=== PATIENT | female | born 1970 | race Caucasian/White ===

== ENCOUNTER 2017-06-29 05:52 | Inpatient (IN) | payer BC ==
[~2017-06-29] VITALS: Ht 154.9 cm; Wt 63.4 kg
[~2017-06-29 05:52] MED LIST: KLONOPIN0.5 MG; METOPROLOL TART50 MG PO
[2017-06-29 06:22] LABS: BASOPHILS 0.1 % (0-2); EOSINOPHILS 4.2 % (0-7); HEMATOCRIT 37.5 % (36.0-48.0); HEMOGLOBIN 12.3 g/dL (12-16); IMMATURE GRANULOCYTES 0.6 % (0-5); LYMPHOCYTES 8.6 % (15-50); MCH 38.4 pg (26.0-34.0); MCHC 32.8 g/dL (31.0-37.0); MCV 117.2 fL (80.0-100.0); MEAN PLATELET VOLUME 9.9 fL (7.4-10.4); MONOCYTES 7.3 % (2-11); NEUTROPHILS 79.2 % (40-80); RDW 13.7 % (11.5-14.5); WBC 15.2 10x3/uL (4.8-10.8)
[2017-06-29 06:34] LABS: PLATELET COUNT 219 10x3/uL (130-400)
[2017-06-29 07:07] LABS: ALBUMIN 3.7 g/dL (3.4-5.0); ALKALINE PHOSPHATASE 166 U/L (46-116); ALT (SGPT) 54 U/L (10-68); BILIRUBIN - TOTAL 0.89 mg/dL (0.2-1.3); CALC OSMOLALITY 281 mosm/kg (275-300); CALCIUM 8.6 mg/dL (8.5-10.1); CARBON DIOXIDE 25.4 mmol/L (21.0-32.0); CHLORIDE - SERUM 101 mmol/L (98-107); CREATININE - SERUM 0.8 mg/dL (0.6-1.3); GLUCOSE 119 mg/dL (74-106); POTASSIUM - SERUM 3.6 mmol/L (3.5-5.1); PROTEIN - SERUM 7.6 g/dL (6.4-8.2); SODIUM 139 mmol/L (136-145); UREA NITROGEN 22 mg/dL (7-18); eGFR NON AFRICAN AMERICAN 82 mL/min (90-120)
[2017-06-29 07:10] LABS: LIPASE 3830 U/L (73-393)
[2017-06-29 07:11] LABS: AMYLASE - SERUM 370 U/L (25-115)
[2017-06-29 07:52] LABS: UDS - AMPHET NEGATIVE QUAL (NEGATIVE); UDS - BARB NEGATIVE QUAL (NEGATIVE); UDS - BENZO NEGATIVE QUAL (NEGATIVE); UDS - COCAINE NEGATIVE QUAL (NEGATIVE); UDS - OPIATE POSITIVE QUAL (NEGATIVE); UDS - PCP NEGATIVE QUAL (NEGATIVE); UDS - THC NEGATIVE QUAL (NEGATIVE)
[2017-06-29 08:00] LABS: HCG URINE NEGATIVE (NEGATIVE)
[2017-06-29 08:03] LABS: APPEARANCE CLEAR (CLEAR); BILIRUBIN NEGATIVE (NEGATIVE); COLOR DK YELLOW (YELLOW); GLUCOSE NEGATIVE (NEGATIVE); KETONE SMALL mg/dL (NEGATIVE); NITRITE NEGATIVE (NEGATIVE); PROTEIN NEGATIVE (NEGATIVE)
--- NOTE | 2017-06-29 11:04 | NUR ---
TO ROOM VIA WHEELCHAIR. SALINE LOCK TO RIGHT AC. WANTING MORE PAIN MEDS AT THIS TIME. WAS GIVEN MS AT 1015 IN THE ER.
[2017-06-29 11:11] VITALS: BP 165/98; BMI 22.7
--- NOTE | 2017-06-29 11:44 | NUR ---
INSPECTOR OUTSIDE STEAM DISTRIBUTION WITH MS SET UP AND EXPLAINED TO PATIENT AND MOTHER. CALLED TO ROOM AGAIN AND EXPLAINED TO USEAGE AGAIN.
[2017-06-29 12:45] LABS: CHOL - HDL RATIO 5.9 ratio (2.3-4.1); LDL-HDL RATIO 3.2 ratio (1.5-3.5)
--- NOTE | 2017-06-29 13:04 | NUR ---
PATIENT UP TO TAKING A SHOWER. RIGHT HAND COVERED WITH GLOVE.
--- NOTE | 2017-06-29 14:21 | NUR ---
CALLED TO ROOM TO ASSIST TO RESTROOM. PATIENT STATES THAT HER PAIN MEDICINE IS "NOT WORKING". I INFORMED PATIENT THAT TWICE I HAVE LOOKED IN ON HER AND SHE HAS BEEN SNORING LIGHTLY. WILL CONTINUE TO MONITOR. STILL NPO
[2017-06-29 15:53] VITALS: BP 114/98
--- NOTE | 2017-06-29 19:45 | NUR ---
ASSESSMENT COMPLETE, A&O. RESPERATIONS EVEN ON RA. IV TO RIGHT AC WITH NS INFUSING AT 125 CC/HR AND MORPHINE ELECTRONICS SPECIALIST IN USE FOR PAIN CONTROL. PT DENIES NEEDS AT THIS TIME, BED LOW, CL IN REACH.
[2017-06-29 20:30] VITALS: BP 148/83
--- NOTE | 2017-06-30 00:13 | NUR ---
CALLED TO PTS ROOM TO EMPTY HAT IN COMMODE, EMPTIED 200 CC, CONCENTRATED URINE NO OTHER NEEDS AT THIS TIME.
--- NOTE | 2017-06-30 00:28 | NUR ---
IN BE RESTING WITH EYES CLOSED, RESPERATIONS EVEN, NO S/S DISTRESS NOTED.
[2017-06-30 01:44] VITALS: BP 131/83
[2017-06-30 04:40] VITALS: BP 165/70
[2017-06-30 05:59] LABS: BASOPHILS 0.1 % (0-2); EOSINOPHILS 2.9 % (0-7); HEMATOCRIT 35.1 % (36.0-48.0); HEMOGLOBIN 11.3 g/dL (12-16); IMMATURE GRANULOCYTES 0.4 % (0-5); LYMPHOCYTES 4.3 % (15-50); MCHC 32.2 g/dL (31.0-37.0); MCV 118.2 fL (80.0-100.0); MEAN PLATELET VOLUME 10.1 fL (7.4-10.4); MONOCYTES 5.9 % (2-11); NEUTROPHILS 86.4 % (40-80); RBC 2.97 10x6/uL (4.00-5.40)
[2017-06-30 06:13] LABS: APTT 21.6 SECONDS (22.8-39.4); INR 1.06 (0.85-1.17); PLATELET COUNT 155 10x3/uL (130-400); PROTIME 13.7 SECONDS (11.6-15.0)
[2017-06-30 06:25] LABS: ALKALINE PHOSPHATASE 129 U/L (46-116); BILIRUBIN - DIRECT 0.73 mg/dL (0.00-0.30); BILIRUBIN - INDIRECT 1.39 mg/dL (0.00-1.00); BILIRUBIN - TOTAL 2.12 mg/dL (0.2-1.3); CALCIUM 8.1 mg/dL (8.5-10.1); CHLORIDE - SERUM 102 mmol/L (98-107); CREATININE - SERUM 0.6 mg/dL (0.6-1.3); GLUCOSE 89 mg/dL (74-106); MAGNESIUM - SERUM 1.8 mg/dL (1.8-2.4); PROTEIN - SERUM 6.4 g/dL (6.4-8.2); SODIUM 137 mmol/L (136-145); eGFR NON AFRICAN AMERICAN > 90 mL/min (90-120)
[2017-06-30 06:32] LABS: AMYLASE - SERUM 623 U/L (25-115); LIPASE 2968 U/L (73-393)
[2017-06-30 06:33] LABS: ALT (SGPT) 35 U/L (10-68); CALC OSMOLALITY 272 mosm/kg (275-300); POTASSIUM - SERUM 4.7 mmol/L (3.5-5.1); UREA NITROGEN 12 mg/dL (7-18)
[2017-06-30 07:13] VITALS: BP 142/85
[2017-06-30 12:57] VITALS: BP 102/59
[2017-06-30 13:17] VITALS: Ht 154.9 cm; Wt 63.4 kg
[2017-06-30 16:00] VITALS: BP 124/87
--- NOTE | 2017-06-30 19:12 | NUR ---
PT IN BED WITH EYES OPEN WATCHING TV. NO S/S DISTRESS. NO COMPLAINTS OR CONCERNS NOTED AT THIS TIME.
[2017-06-30 20:00] VITALS: BP 149/65
[2017-07-01] VITALS: BP 126/77
--- NOTE | 2017-07-01 00:30 | NUR ---
PT IN BED WITH EYES CLOSED AND CHEST RISING. EASILY AROUSED TO VERBAL STIMULI. IV LEAKING AND MOVED TO LEFT FOREARM WITH 22GA AND 4 ATTEMPTS BY 3 NURSES. NO CONCERNS NOTED AT THIS TIME. CALL LIGHT IN REACH. WILL CONTINUE TO OBSERVE.
[2017-07-01 04:00] VITALS: BP 120/69
[2017-07-01 05:37] LABS: BASOPHILS 0.1 % (0-2); EOSINOPHILS 2.8 % (0-7); HEMATOCRIT 33.5 % (36.0-48.0); HEMOGLOBIN 10.8 g/dL (12-16); IMMATURE GRANULOCYTES 0.4 % (0-5); LYMPHOCYTES 4.1 % (15-50); MCH 38.6 pg (26.0-34.0); MCHC 32.2 g/dL (31.0-37.0); MCV 119.6 fL (80.0-100.0); MEAN PLATELET VOLUME 10.2 fL (7.4-10.4); MONOCYTES 4.9 % (2-11); NEUTROPHILS 87.7 % (40-80); PLATELET COUNT 173 10x3/uL (130-400); RDW 13.8 % (11.5-14.5)
[2017-07-01 05:38] LABS: WBC 18.2 10x3/uL (4.8-10.8)
[2017-07-01 06:06] LABS: ALKALINE PHOSPHATASE 143 U/L (46-116); ALT (SGPT) 31 U/L (10-68); BILIRUBIN - INDIRECT 1.86 mg/dL (0.00-1.00); BILIRUBIN - TOTAL 5.16 mg/dL (0.2-1.3); CALC OSMOLALITY 276 mosm/kg (275-300); CALCIUM 8.4 mg/dL (8.5-10.1); CHLORIDE - SERUM 102 mmol/L (98-107); GLUCOSE 74 mg/dL (74-106); LIPASE 765 U/L (73-393); MAGNESIUM - SERUM 1.9 mg/dL (1.8-2.4); PROTEIN - SERUM 6.9 g/dL (6.4-8.2); SODIUM 140 mmol/L (136-145); UREA NITROGEN 9 mg/dL (7-18)
[2017-07-01 06:09] LABS: AMYLASE - SERUM 276 U/L (25-115); CREATININE - SERUM 0.8 mg/dL (0.6-1.3); POTASSIUM - SERUM 3.7 mmol/L (3.5-5.1); eGFR NON AFRICAN AMERICAN 82 mL/min (90-120)
[2017-07-01 08:35] VITALS: BP 143/87
[2017-07-01 12:40] VITALS: BP 122/78
[2017-07-01 16:44] VITALS: BP 167/99
[2017-07-01 16:52] LABS: LIPASE 553 U/L (73-393)
[2017-07-01 17:07] LABS: AMYLASE - SERUM 154 U/L (25-115)
[2017-07-01 19:00] VITALS: BP 143/75
--- NOTE | 2017-07-02 02:31 | NUR ---
CALL LIGHT IN REACH. WILL CONTINUE WITH PLAN OF CARE.
[2017-07-02 05:37] LABS: BASOPHILS 0.2 % (0-2); EOSINOPHILS 3.6 % (0-7); HEMATOCRIT 30.2 % (36.0-48.0); HEMOGLOBIN 9.6 g/dL (12-16); IMMATURE GRANULOCYTES 0.3 % (0-5); LYMPHOCYTES 5.1 % (15-50); MCH 37.9 pg (26.0-34.0); MCHC 31.8 g/dL (31.0-37.0); MCV 119.4 fL (80.0-100.0); MEAN PLATELET VOLUME 10.1 fL (7.4-10.4); MONOCYTES 7.8 % (2-11); PLATELET COUNT 183 10x3/uL (130-400); RBC 2.53 10x6/uL (4.00-5.40); RDW 13.5 % (11.5-14.5)
[2017-07-02 05:41] LABS: WBC 13.2 10x3/uL (4.8-10.8)
[2017-07-02 05:56] LABS: ALBUMIN 2.7 g/dL (3.4-5.0); ALKALINE PHOSPHATASE 125 U/L (46-116); ALT (SGPT) 24 U/L (10-68); CALC OSMOLALITY 274 mosm/kg (275-300); CALCIUM 8.5 mg/dL (8.5-10.1); CHLORIDE - SERUM 106 mmol/L (98-107); CREATININE - SERUM 0.7 mg/dL (0.6-1.3); LIPASE 386 U/L (73-393); MAGNESIUM - SERUM 1.7 mg/dL (1.8-2.4); POTASSIUM - SERUM 4.2 mmol/L (3.5-5.1); PROTEIN - SERUM 6.3 g/dL (6.4-8.2); SODIUM 140 mmol/L (136-145); UREA NITROGEN 8 mg/dL (7-18); eGFR NON AFRICAN AMERICAN > 90 mL/min (90-120)
[2017-07-02 06:04] LABS: AMYLASE - SERUM 88 U/L (25-115); GLUCOSE 63 mg/dL (74-106)
--- NOTE | 2017-07-02 07:15 | NUR ---
RECIEVED REPORT ON PATIENT, PATIENT IS ALERT AND ORIENTED AT THIS TIME. PATIENT IS RESTING IN BED, MOTHER IS AT THE BEDSIDE AT THIS TIME. PATIENT HAS A L FA IV THAT IS INFUSING WITH NS AT 125ML/HR AND A MORPHINE ACCOUNTS PAYABLE ACCOUNTANT WITH SETTINGS 2MG/10MIN. PATIENT PAIN IS IN HER ABD, SHARP PAIN 5/10. WILL CONT TO MONITOR PATIENT. PATIENT DENIES ANY NEEDS. CPOC
--- NOTE | 2017-07-02 09:00 | NUR ---
PO MEDS HELD DUE TO PATIENT BEING NPO, AND PATIENT STATES TO HOLD FOR NOW. CPOC
[2017-07-02 10:17] LABS: HEPATITIS C ANTIBODY <0.1 (0.0-0.9)
[2017-07-02 10:22] VITALS: BP 161/88
--- NOTE | 2017-07-02 11:00 | NUR ---
PATIENT SIGNED CONSENTS. DENIES ANY NEEDS. CPOC
--- NOTE | 2017-07-02 12:00 | NUR ---
PATIENT HAS HAD SHOWER, AND PREPPED FOR SURGERY. DENIES ANY NEEDS. CPOC
[2017-07-02 12:08] VITALS: BP 152/85
--- NOTE | 2017-07-02 14:33 | NUR ---
PATIENT PREOP AND GONE FOR SURGERY. CPOC
[2017-07-02 15:26] VITALS: BP 161/86
--- NOTE | 2017-07-02 16:16 | NUR ---
1545 PATIENT NOTED TO HAVING NUMEROUS BRUISING ON ARMS, AND WHEN PREPPING NOTED SEVERAL BRUISES ON ABDOMEN, ALISTAIR.
--- NOTE | 2017-07-02 16:26 | NUR ---
PATIENT STILL IN SURGERY. CPOC
--- NOTE | 2017-07-02 17:15 | NUR ---
PATIENT EATING DINNER, DENIES ANY NEEDS AT THIS TIME. PRECISION INSTRUMENT MAKER
--- NOTE | 2017-07-02 17:30 | NUR ---
RECIEVED REPORT FROM YVON IN RECOVERY. WAITING FOR ARRIVAL.
[2017-07-02 17:38] VITALS: BP 154/83
--- NOTE | 2017-07-02 17:44 | NUR ---
PATIENT BACK TO ROOM, VS STABLE. PATIENT PAIN IS 8/10. MORPHINE PAPER NOVELTY MAKER HOOKED BACK UP AND INFUSING NEEDED. WLL CONT TO MONITOR. CPOC
--- NOTE | 2017-07-02 19:59 | NUR ---
PT RESTING IN BED.FAMILY AT BEDSIDE. PT ASKS FOR SCDS TO BE PUT ON BILATERAL LOWER EXTREMITIES. PT DENIES ANY NEEDS. NO S/S OF DISTRESS. WILL CPOC
[2017-07-02 20:00] VITALS: BP 144/73
--- NOTE | 2017-07-02 21:20 | NUR ---
PT C/O ABD INCISION BLEEDING. PT HAS A BANDAID ON AREA. AREA BLEEDING. NO STERI-STRIPS SEEN. ATTEMPTED TO APPLY STERI-STRIPS. AND PUT A PRESSURE DRSG. TO AREA. PT DENIES ANY OTHER NEEDS. NO S/S OF DISTRESS. WILL CPOC
--- NOTE | 2017-07-02 22:36 | OP ---
PATIENT NAME: HERIBERTO HUITRON MEDICAL RECORD: [id number] :72 LOCATION:D. D.2133 ADMISSION DATE:06/29/17 SURGEON: ELIZABETH MORRIS MD DATE OF OPERATION: 07/02/2017 DATE OF OPERATION: 07/02/2017 SURGEON: Elizabeth Morris MD PREOPERATIVE DIAGNOSES: 1. Pancreatitis. 2. Jaundice. 3. Hypertension. POSTOPERATIVE DIAGNOSES: 1. Pancreatitis. 2. Jaundice. 3. Hypertension. 4. Cirrhosis. PROCEDURE PERFORMED: 1. Laparoscopic cholecystectomy. 2. Intraoperative cholangiogram with immediate interpretation of fluoroscopy. Case was clean contaminated. SPECIMENS: Gallbladder. ESTIMATED BLOOD LOSS: 70 cc. ANESTHESIA: General. OPERATIVE COURSE: After consent was obtained, the patient was taken to the operating room and placed in the supine position on the operating table. Next, general anesthesia was given via endotracheal intubation. Thereafter, a timeout was taken to confirm the correct patient and procedure. The abdomen was prepped and draped in typical sterile fashion. Local anesthetic was injected just above the umbilicus. A stab incision was made with a 15-blade scalpel. Using a 5-mm bladeless optical trocar, the abdomen was entered under direct laparoscopic vision. Adequate pneumoperitoneum was achieved. The abdominal cavity was inspected. No evidence of bowel injury. No evidence of bleeding. At this time, the patient was placed in the steep reverse Trendelenburg position. All remaining trocars were placed, two 5-mm trocars in the right upper quadrant and 11-mm trocar in the subxiphoid position. Immediately noticed was that the patient had gross cirrhosis and hepatomegaly. The patient's liver was markedly enlarged. There was bridging fibrosis noted throughout the liver. Next, the fundus of the gallbladder was grasped and retracted cephalad. The infundibulum was grasped and retracted laterally. The peritoneum was opened using electrocautery. Blunt dissection was performed until the critical view was obtained. The cystic duct lateral, cystic artery medial, liver in the posterior window. Two clips were placed in the proximal cystic artery. There was a posterior branch noted as well. Two clips were placed in the posterior branch. The anterior and posterior branches were both ligated using Metzenbaum scissors. A leia incision was made in the cystic duct. Cholangiogram catheter was placed. Intraoperative cholangiogram was performed, which showed no filling OPERATIVE REPORT [id number] ELANAGLENDAHERIBERTO D defects as well as in addition to retrograde filling of both the right and left hepatic ducts. At this time, the cholangiogram was terminated. The cholangiocatheter was removed. The cystic duct was transected. Three clips were placed in the cystic duct remaining portion of the gallbladder was dissected off the liver bed using electrocautery. Once completed, it was grasped with the tenaculum and removed through the 11-mm trocar and sent for permanent pathology. Next, meticulous cautery was used to ensure hemostasis in the liver bed. The right upper quadrant was copiously irrigated and suctioned with 3 liters of normal saline. Fabien was applied to the liver bed to ensure hemostasis. At the end of the case, there were [address] in the cystic duct, two clips in place on both posterior and anterior cystic arteries. No evidence of bowel injury, no evidence of bleeding, no evidence of bile leak. At this time, the remaining portion of the abdomen was inspected. There was no evidence of bowel injury, no evidence of bleeding. At this time, all remaining instruments were removed. The abdomen was desufflated. Trocars were removed. Skin was closed with 4-0 Monocryl, Mastisol and Steri-Strips. At the end of the case, all needle and instrument counts were correct. No complications occurred. The patient was extubated and transferred to the PACU in stable condition. TRANSINT:[id number] Voice Confirmation ID: [id number] DOCUMENT ID: [id number] ELIZABETH MORRIS MD at 2236 CC: [id number] DICTATION DATE: 07/02/17 170 NUTRITION PARTNER: 07/02/17 1814 ADM IN [facility] [place] [id number] [place] [address]
--- NOTE | 2017-07-02 23:00 | NUR ---
AREA STILL BLEEDING. ANOTHER PRESSURE DRSG APPLIED AND PUT ICE ON AREA. WILL CONTINUE TO MONITOR BLEEDING. CHARGE NURSE DONALD NOTIFIED. WILL CPOC
--- NOTE | 2017-07-02 23:43 | NUR ---
PRESSURE DRSG APPLIED OVER OTHER DRSG THAT WAS SATURATED. DONALD CHARGE NURSE NOTIFIED. ICE ON AREA. PT DENIES ANY OTHER NEEDS. WILL CPOC
[2017-07-03] VITALS: BP 120/65
--- NOTE | 2017-07-03 03:24 | NUR ---
CHANGED DRSG ON ABD. IT SOAKED DRSG. CLEANED WITH POVIDONE-IODINE AND APPLIED STERI-STRIPS. PUT A 2X2 GAUZE AND A TEGADERM. PT UP TO RESTROOM MINIMAL ASSIST. OUTPUT 350 OF YVON COLORED URINE. PT WT IS 139.4 LBS. PT C/O NOT BEING ABLE TO SLEEP TONIGHT IN FEAR OF HER ABD INCISON BLEEDING ALL ON THE BED. ASSURED PT THAT IT WILL BE MONITORED. PT DENIES ANY NEEDS AT THIS TIME. NO S/S OF DISTRESS. WILL CPOC
[2017-07-03 04:00] VITALS: BP 100/62
--- NOTE | 2017-07-03 06:00 | NUR ---
DRSG STILL ON, BLOOD SHOWING THROUGH BUT BANDAGE IS NOT SATURATED AT THIS TIME. PT SHOWS CONCERN AND ANXIETY REGARDING BLEEDING. REASSURED PT. PT DENIES ANY NEEDS. NO S/S OF DISTRESS. WILL CPOC
[2017-07-03 07:18] LABS: BASOPHILS 0.1 % (0-2); EOSINOPHILS 0.1 % (0-7); HEMATOCRIT 26.7 % (36.0-48.0); HEMOGLOBIN 8.4 g/dL (12-16); IMMATURE GRANULOCYTES 0.5 % (0-5); LYMPHOCYTES 3.1 % (15-50); MCH 37.5 pg (26.0-34.0); MCHC 31.5 g/dL (31.0-37.0); MCV 119.2 fL (80.0-100.0); MONOCYTES 5.7 % (2-11); NEUTROPHILS 90.5 % (40-80); RBC 2.24 10x6/uL (4.00-5.40); RDW 13.5 % (11.5-14.5)
[2017-07-03 07:30] LABS: PLATELET COUNT 230 10x3/uL (130-400); WBC 18.2 10x3/uL (4.8-10.8)
[2017-07-03 07:37] LABS: ALBUMIN 2.7 g/dL (3.4-5.0); BILIRUBIN - DIRECT 3.13 mg/dL (0.00-0.30); BILIRUBIN - INDIRECT 0.87 mg/dL (0.00-1.00); CALCIUM 8.4 mg/dL (8.5-10.1); CARBON DIOXIDE 19.6 mmol/L (21.0-32.0); PROTEIN - SERUM 6.2 g/dL (6.4-8.2)
[2017-07-03 07:44] LABS: ANION GAP 17.9 mmol/L (8-16); CREATININE - SERUM 0.9 mg/dL (0.6-1.3); POTASSIUM - SERUM 5.5 mmol/L (3.5-5.1)
--- NOTE | 2017-07-03 07:59 | NUR ---
PT SITTING UP IN BED PT C/O BLEEDING AT UPPER ABDOMINAL INCISION. BLEEDING IS NOTED TO BE COMING THROUGH DSNG. PT UPSET. PAGED DR ERVIN COMMODITY SUPERVISOR SURGEON. SAID TO REINFORCE DSNG AGAIN AND CALL ALEXANDRA. DONE.
[2017-07-03 08:00] VITALS: BP 136/73
--- NOTE | 2017-07-03 08:07 | NUR ---
SPOKE WITH DR MORRIS AND LET HIM KNOW ABOUT THE BLEEDING. SAID TO KEEP REINFORCING DRESSINGS. WILL DO
[2017-07-03 12:00] VITALS: BP 118/59
--- NOTE | 2017-07-03 13:34 | NUR ---
Nutrition Follow Up: Pt is POD 1 Cholecystectomy. Diet has been advanced to full liquid. +BM 07/02/17. Labs and meds reviewed. Rec continue advancing YASSINE as medically feasible. RD following.
[2017-07-03 18:02] VITALS: BP 134/56
[2017-07-03 20:00] VITALS: BP 142/858
--- NOTE | 2017-07-03 21:56 | NUR ---
PT AWAKE AND FAMILY AT BEDSIDE. NO DISTRESS NOTED. WILL CONTINUE TO MONITOR.
[2017-07-04] VITALS: BP 99/53
[2017-07-04 04:00] VITALS: BP 134/70
[2017-07-04 06:10] LABS: BASOPHILS 0.3 % (0-2); EOSINOPHILS 4.8 % (0-7); HEMATOCRIT 28.5 % (36.0-48.0); HEMOGLOBIN 8.9 g/dL (12-16); IMMATURE GRANULOCYTES 0.4 % (0-5); LYMPHOCYTES 7.8 % (15-50); MCH 37.9 pg (26.0-34.0); MCHC 31.2 g/dL (31.0-37.0); MEAN PLATELET VOLUME 9.8 fL (7.4-10.4); MONOCYTES 12.6 % (2-11); NEUTROPHILS 74.1 % (40-80); PLATELET COUNT 186 10x3/uL (130-400); RBC 2.35 10x6/uL (4.00-5.40)
[2017-07-04 06:18] LABS: MCV 121.3 fL (80.0-100.0)
[2017-07-04 06:36] LABS: ALBUMIN 2.7 g/dL (3.4-5.0); ALKALINE PHOSPHATASE 219 U/L (46-116); ALT (SGPT) 59 U/L (10-68); AMYLASE - SERUM 67 U/L (25-115); BILIRUBIN - DIRECT 1.57 mg/dL (0.00-0.30); BILIRUBIN - INDIRECT 0.72 mg/dL (0.00-1.00); BILIRUBIN - TOTAL 2.29 mg/dL (0.2-1.3); CALC OSMOLALITY 283 mosm/kg (275-300); CALCIUM 8.6 mg/dL (8.5-10.1); CARBON DIOXIDE 23.9 mmol/L (21.0-32.0); CHLORIDE - SERUM 108 mmol/L (98-107); CREATININE - SERUM 0.8 mg/dL (0.6-1.3); GLUCOSE 142 mg/dL (74-106); LIPASE 665 U/L (73-393); MAGNESIUM - SERUM 1.8 mg/dL (1.8-2.4); PHOSPHOROUS 1.6 mg/dL (2.5-4.9); POTASSIUM - SERUM 3.2 mmol/L (3.5-5.1); PROTEIN - SERUM 6.5 g/dL (6.4-8.2); SODIUM 142 mmol/L (136-145); UREA NITROGEN 11 mg/dL (7-18); eGFR NON AFRICAN AMERICAN 82 mL/min (90-120)
--- NOTE | 2017-07-04 07:30 | NUR ---
REPORT RECEIVED. PT RESTING QUIETLY, RR EVEN AND UNLABORED. PT REPORTS FEELING TIRED THIS MORNING, HOPING TO BE D/C TODAY. PT IS ALERT AND ORIENTED, WILL CTM.
[2017-07-04 08:16] VITALS: BP 172/78
--- NOTE | 2017-07-04 10:15 | NUR ---
PTS K+ IS DECREASED TO 3.2. WILL GIVE 40MEQ OF K+ POWDER PER ORDERS AND RECHECK IN 4 HRS. WILL CTM.
[2017-07-04 11:23] VITALS: BP 160/99
[2017-07-04 15:46] VITALS: BP 156/92
--- NOTE | 2017-07-04 17:00 | NUR ---
PER DR. DUKE'S NOTES, PT CAN NOW ADVANCE DIET TOELRATED. PT REQUESTING SOLID FOODS. WILL ORDER AND CTM PT CONDTION AFTER SHE EATS.
--- NOTE | 2017-07-04 18:15 | NUR ---
AFTER EATING DINNER, PT REPORTS NO PAIN OR DISCOMFORT. RR EVEN AND UNLABORED. LITHOGRAPHIC PRESS OPERATOR APPRENTICE HAS BEEN D/C. WILL GIVE REPORT ON PT CONDITION FOR THE DAY.
--- NOTE | 2017-07-04 19:41 | NUR ---
RECEIVED REPORT, WILL ASSUME CARE OF PT, PT WANTING ON MOTHER TO WHEEL HER AROUND, DENIES ANY NEEDS AT THIS TIME,, WILL CONTINUE PLAN OF CARE
[2017-07-04 20:00] VITALS: BP 179/103
--- NOTE | 2017-07-05 03:24 | NUR ---
ASSESSMENT COMPLETE, SLEEPING, BED IS LOW, SRX2, MOTHER AT BEDSIDE, CALL LIGHT IN REACH, WILL CONTINUE PLAN OF CARE
[2017-07-05 05:06] VITALS: BP 153/87
[2017-07-05 06:40] LABS: BASOPHILS 0.4 % (0-2); EOSINOPHILS 3.8 % (0-7); HEMATOCRIT 26.1 % (36.0-48.0); HEMOGLOBIN 8.5 g/dL (12-16); IMMATURE GRANULOCYTES 1.1 % (0-5); LYMPHOCYTES 10.3 % (15-50); MCH 38.1 pg (26.0-34.0); MCHC 32.6 g/dL (31.0-37.0); MEAN PLATELET VOLUME 10.5 fL (7.4-10.4); MONOCYTES 9.6 % (2-11); NEUTROPHILS 74.8 % (40-80); PLATELET COUNT 192 10x3/uL (130-400); RBC 2.23 10x6/uL (4.00-5.40); RDW 13.8 % (11.5-14.5); WBC 8.4 10x3/uL (4.8-10.8)
[2017-07-05 07:03] LABS: ALBUMIN 2.6 g/dL (3.4-5.0); ALKALINE PHOSPHATASE 198 U/L (46-116); ALT (SGPT) 51 U/L (10-68); AMYLASE - SERUM 64 U/L (25-115); BILIRUBIN - TOTAL 1.43 mg/dL (0.2-1.3); CALC OSMOLALITY 279 mosm/kg (275-300); CALCIUM 8.5 mg/dL (8.5-10.1); CHLORIDE - SERUM 105 mmol/L (98-107); CREATININE - SERUM 0.6 mg/dL (0.6-1.3); GLUCOSE 124 mg/dL (74-106); LIPASE 577 U/L (73-393); POTASSIUM - SERUM 3.7 mmol/L (3.5-5.1); PROTEIN - SERUM 6.2 g/dL (6.4-8.2); SODIUM 141 mmol/L (136-145); eGFR NON AFRICAN AMERICAN > 90 mL/min (90-120)
[2017-07-05 07:04] LABS: UREA NITROGEN 6 mg/dL (7-18)
--- NOTE | 2017-07-05 07:15 | NUR ---
RECIEVED REPORT ON PATIENT, PATIENT IS RESTING AT THIS TIME, NAD NOTED. AROUSES TO VOICE. PATIENT REQUESTING TO SEE DR DUKE THIS AM, ANXIOUS ABOUT GOING HOME. WILL TALK WITH DR WHEN HE GETS HERE THIS AM. DENIES ANY OTHER NEEDS. BED LOW AND LOCKED. CALL LIGHT IN REACH. CPOC
[2017-07-05 08:00] VITALS: BP 170/102
--- NOTE | 2017-07-05 09:00 | NUR ---
MORNING MEDICATIONS GIVEN, PATIENT DENIES ANY NEEDS, STATES PAIN IS 8/10 IN ABD AT THIS TIME. WILL CONT TO MONITOR. CPOC
--- NOTE | 2017-07-05 10:50 | NUR ---
SPOKE WITH DR DUKE REGARDING PATIENT PAIN NOT BEING CONTROLLED, PATIENT REQUESTING NORCO TO BE GIVEN EVERY 4 HOURS INSTEAD OF EVERY [address] DUKE OKAYED TO ORDER NORCO 5MG EVERY 4HOURS PRN PAIN. CPOC
[2017-07-05 12:00] VITALS: BP 165/92
--- NOTE | 2017-07-05 12:30 | NUR ---
NORCO GIVEN FOR PAIN IN ABD. WILL CONT TO MONITOR
--- NOTE | 2017-07-05 14:00 | NUR ---
PATIENT ANXIOUS ABOUT GOING HOME. PATIENT DENIES ANY OTHER NEEDS. WAITING ON DR DUKE. CPOC
[2017-07-05] MEDS ORDERED: HYDROCODON-ACE1 EAC7 PO (14:31)
[2017-07-05] MEDS ORDERED: ZOFRAN ODT4 MG/UDTAB PO (14:32)
--- NOTE | 2017-07-05 16:10 | NUR ---
PATIENT IV DC WITH CATH TIP INTACT. PATIENT GIVEN DC INSTRUCTIONS. DENIES ANY QUESTIONS. PRECRIPTIONS GIVEN. PATIENT READY FOR DC
== END 2017-07-05 17:36 | disposition home or self-care (01) | DRG 419 ==
LOC: D.ER 05:52 → D.M2 10:21
PROVIDERS: Family Medicine; Surgery; ADMIT Family Medicine
PROC: BF111ZZ Fluoroscopy of Biliary and Pancreatic Ducts using Low Osmolar Contrast (ICD-10-PCS; 2017-07-02)
PROC: 0FT44ZZ Resection of Gallbladder, Percutaneous Endoscopic Approach (ICD-10-PCS; principal; 2017-07-02 10:15)
DX: K85.90 Acute pancreatitis without necrosis or infection, unspecified (principal); K58.9 Irritable bowel syndrome, unspecified; I10 Essential (primary) hypertension; K74.60 Unspecified cirrhosis of liver

== ENCOUNTER 2018-03-15 10:46 | Emergency (ER) | payer BC ==
[~2018-03-15] VITALS: Ht 154.9 cm; Wt 63.6 kg
[~2018-03-15 10:46] MED LIST changes: +HYDROCODON-ACE1 EAC7 PO; +ZOFRAN ODT4 MG/UDTAB PO
[2018-03-15 10:55] VITALS: Ht 154.9 cm; Wt 63.6 kg
[2018-03-15] MEDS ORDERED: BACTRIM DS TABL1 TAB PO (10:59)
[2018-03-15] MEDS ORDERED: ULTRAM50 MG PO (11:00)
[2018-03-15] MEDS ORDERED: MIRAPEX0.5 MG PO (11:01)
[2018-03-15 14:27] LABS: BASOPHILS 0.2 % (0-2); HEMATOCRIT 32.2 % (36.0-48.0); HEMOGLOBIN 9.5 g/dL (12-16); IMMATURE GRANULOCYTES 0.3 % (0-5); LYMPHOCYTES 8.5 % (15-50); MCH 29.4 pg (26.0-34.0); MCHC 29.5 g/dL (31.0-37.0); MCV 99.7 fL (80.0-100.0); MEAN PLATELET VOLUME 9.7 fL (7.4-10.4); MONOCYTES 6.4 % (2-11); NEUTROPHILS 81.6 % (40-80); RBC 3.23 10x6/uL (4.00-5.40); RDW 17.2 % (11.5-14.5); WBC 11.6 10x3/uL (4.8-10.8)
[2018-03-15 14:32] LABS: PLATELET COUNT 239 10x3/uL (130-400)
[2018-03-15 14:55] LABS: ANION GAP 12.1 mmol/L (8-16); BILIRUBIN - TOTAL 2.13 mg/dL (0.2-1.3); CALCIUM 9.3 mg/dL (8.5-10.1); CREATININE - SERUM 0.9 mg/dL (0.6-1.3); POTASSIUM - SERUM 4.1 mmol/L (3.5-5.1); PROTEIN - SERUM 8.5 g/dL (6.4-8.2)
[2018-03-15 14:57] LABS: URIC ACID 7.1 mg/dL (2.6-7.2)
[2018-03-15] MEDS ORDERED: HYDROCODONE-APA1 TAB PO (20:41)
[2018-03-15 23:33] VITALS: BP 135/78
== END 2018-03-15 20:59 | disposition home or self-care (01) ==
LOC: D.ER 10:46
PROVIDERS: Family Medicine
DX: S92.331A Displaced fracture of third metatarsal bone, right foot, initial encounter for closed fracture (principal); X58.XXXA Exposure to other specified factors, initial encounter; Y93.89 Activity, other specified; Y92.019 Unspecified place in single-family (private) house as the place of occurrence of the external cause; R60.0 Localized edema; M79.671 Pain in right foot

== ENCOUNTER 2018-12-26 10:16 | Inpatient (IN) | payer BC ==
[~2018-12-26] VITALS: Ht 154.9 cm; Wt 54.4 kg
[~2018-12-26 10:16] MED LIST changes: +BACTRIM DS TABL1 TAB PO; +HYDROCODONE-APA1 TAB PO; +MIRAPEX0.5 MG PO; +ULTRAM50 MG PO
--- NOTE | 2018-12-26 10:35 | NUR ---
BLOOD COLLECTED VIA IV START, GIVEN TO LAB AT BEDSIDE. URNIE SPECIMEN GIVEN TO LAB AT BEDSIDE.
[2018-12-26 10:39] LABS: BASOPHILS 0.1 % (0-2); EOSINOPHILS 0.2 % (0-7); HEMATOCRIT 34.7 % (36.0-48.0); HEMOGLOBIN 11.1 g/dL (12-16); IMMATURE GRANULOCYTES 0.4 % (0-5); LYMPHOCYTES 8.1 % (15-50); MCH 28.7 pg (26.0-34.0); MCV 89.7 fL (80.0-100.0); MEAN PLATELET VOLUME 12.4 fL (7.4-10.4); MONOCYTES 10.2 % (2-11); PLATELET COUNT 286 10x3/uL (130-400); RBC 3.87 10x6/uL (4.00-5.40); RDW 16.4 % (11.5-14.5)
[2018-12-26 10:43] LABS: APPEARANCE CLEAR (CLEAR); BILIRUBIN NEGATIVE (NEGATIVE); COLOR STRAW (YELLOW); GLUCOSE 1000 mg/dL (NEGATIVE); KETONE NEGATIVE (NEGATIVE); NITRITE NEGATIVE (NEGATIVE); PROTEIN NEGATIVE (NEGATIVE); UROBILINOGEN NORMAL (NORMAL)
--- NOTE | 2018-12-26 10:44 | NUR ---
PATIENT REPORTS TAKING A 50 MG TRAMADOL APPROX 30 MIN TRACK INSPECTOR. "I THOUGHT IT MIGHT HELP BUT IT DOESN'T WORK WORTH A CRAP."
[2018-12-26 11:22] LABS: ALBUMIN 4.1 g/dL (3.4-5.0); ANION GAP 17.9 mmol/L (8-16); BILIRUBIN - TOTAL 1.8 mg/dL (0.2-1.3); CALCIUM 9.4 mg/dL (8.5-10.1); CARBON DIOXIDE 24.9 mmol/L (21.0-32.0); CREATININE - SERUM 1.3 mg/dL (0.6-1.3); POTASSIUM - SERUM 4.8 mmol/L (3.5-5.1); PROTEIN - SERUM 8.8 g/dL (6.4-8.2)
[2018-12-26 11:51] LABS: MAGNESIUM - SERUM 1.9 mg/dL (1.8-2.4)
--- NOTE | 2018-12-26 12:01 | NUR ---
PATIENT REPORTS NO PAIN RELIEF FROM MORPHINE. SHE IS AWAKE AND ALERT. RESPIRATIONS EVEN AND UNLABORED. COLOR WNL FOR RACE. MOTHER IS AT BEDSIDE SCRATCHING THE PATIENT'S SKIN (ARMS, LEGS, FEET).
[2018-12-26 12:05] LABS: KETONE - SERUM NEGATIVE (NEGATIVE)
[2018-12-26 12:40] VITALS: BP 122/83
--- NOTE | 2018-12-26 12:40 | NUR ---
POC GLUCOSE 528
--- NOTE | 2018-12-26 13:30 | NUR ---
PATIENT IS SITTING UP AND LEANING BACKWARDS IN THE BED WITH LEFT FOOT UNDER HER RIGHT LEG. MOTHER IS AT BEDSIDE SCRATCHING AND RUBBING PATIENT'S ARMS, LEGS, AND FEET. PATIENT STILL C/O PAIN AND REPORTS NO RELIEF FROM PREVIOUS PAIN MEDICATION GIVEN. SHE IS AWAKE AND APPEARS RELAXED AND SLIGHTLY DROWSEY. UPDATED ON PLAN OF CARE AND DELAYS IN CARE. WILL CONTINUE TO MONITOR.
[2018-12-26 13:45] VITALS: BP 133/68
[2018-12-26 14:47] VITALS: BP 118/73
--- NOTE | 2018-12-26 15:15 | NUR ---
POC GLUCOSE 412
[2018-12-26 15:21] VITALS: BP 108/72
--- NOTE | 2018-12-26 15:51 | MORECARE ---
CASE MANAGEMENT DISCHARGE SUMMARY PATIENT: HERIBERTO HUITRON UNIT: [id number] ADM DATE: 12/26/18 AGE: 48 : 72 SEX: F ROOM/BED: D.E07 AUTHOR: ZELDA ALVAREZ PHYSICIAN: REFERRING PHYSICIAN: SHANT JOSHI MD DATE OF SERVICE: 12/26/18 Discharge Plan Patient Name: HERIBERTO HUITRON Facility: [facility]:[place] : 1970 Planned Disposition: Anticipated Discharge Date: 12/28/18 Discharge Date: Expected LOS: 2 Initial Reviewer: [email or web address] Initial Review Date: 12/26/2018 Generated: 12/26/18 4:51 pm DCP- Discharge Planning Updated by [email or web address]: Nikole Hicks on 12/26/18 2:[address] Patient Name: HERIBERTO HUITRON Admission Status: ER Accout number: [id number] Admission Date: 12-26-2018 : 1970 Admission Diagnosis: Attending: SHANT JOSHI Current LOS: 1 Anticipated DC Date: 12-28-2018 Planned Disposition: Primary Insurance: [employer] [facility] Discharge Planning Comments: CM met with patient and her mother to complete initial dc planning assessment. CM educated patient on the CM role and verbal consent given by patient to complete assessment. Patient lives at home with her and their son. At discharge patient plans to return home and feels this is a safe discharge. CM discussed availability of home health, rehab services, and medical equipment. Patient denied known discharge needs at this time. CM will continue to follow and will assist as needed with dc plans/needs. Master Dyer: Nikole Hicks RN, [facility] DCPIA - Discharge Planning Initial Assessment Updated by [email or web address]: Nikole Hicks on 12/26/18 3:46 pm * Is the patient Alert and Oriented? Yes * How many steps to enter\exit or inside your home? * PCP Dr. Nichols * Pharmacy [facility] * Preadmission Environment Home with Family * ADLs Independent * Equipment None * Other Equipment No know diabetes * List name and contact numbers for known caregivers / representatives who currently or will assist patient after discharge: Amarilis Castro - mother - [phone] Timi Huitron - - [phone] * Verbal permission to speak to the caregivers and representatives has been obtained from the patient. Yes * Community resources currently utilized None * Additional services required to return to the preadmission environment? No * Can the patient safely return to the preadmission environment? Yes * Has this patient been hospitalized within the prior 30 days at any hospital? No Patient Name: HERIBERTO HUITRON Page [id number] at 1551 All edits/amendments must be made on the electronic document DICTATION DATE: 12/26/18 1550 CONTACT CENTER CONSULTANT: ADORE 12/26/18 1550 RPT#: [id number] DC DATE: STATUS: ADM IN [facility] [address] [place] [address] END OF REPORT
[2018-12-26 16:24] VITALS: BP 192/102
[2018-12-26] MEDS ORDERED: REQUIP0.5 MG PO (16:47)
[2018-12-26] MEDS ORDERED: AUGMENTIN 875-11 TAB PO (16:49)
[2018-12-26] MEDS ORDERED: MEDROL DOSE PACK4 MG PO (16:49)
--- NOTE | 2018-12-26 16:54 | NUR ---
PATIENT ARRIVED TO ROOM 1207 FROM ET VIA WHEELCHAIR. PUT SELF IN BED AND MADE COMFORTABLE. IV OF 0.9% NS STARTED AT 250ML/HR. VS TAKEN BP 192/102, 76, 97.9, 92%, 18. PATIENT C/O PAIN LEVEL OF 10. REQUESTING TO SEE THE DOCTOR. DR. JOSHI NOTIFIED THAT PATIENT IS HERE.
--- NOTE | 2018-12-26 19:09 | NUR ---
DR. JOSHI HERE TO VISIT THIS EVENING. NEW ORDERS GIVEN AND NOTED. MEDICATED WITH PRN MORPHINE 4MG PER PATIENT REQUEST. STATES PAIN LEVEL IS OVER A 10. THIS DID NOT HELP. WILL GIVE PRN DILADID WHEN TIME TO GIVE. BS AT 1800 342. 12 UNITS OF REGULAR INSULIN GIVEN. MOM AT BEDSIDE. WILL CONTINUE TO [facility].
--- NOTE | 2018-12-26 20:21 | NUR ---
PT'S FAMILY MEMBER STAY AT BED SIDE, CALL LIGHT IN REACH.
[2018-12-26 20:51] VITALS: BP 197/105
--- NOTE | 2018-12-26 22:30 | NUR ---
ROUNDING ON THE PATIENT, SHE IS AWAKE AND REPORTS PAIN OF 10/10 IN THE ABD AREA. FAMILY AT THE BEDSIDE. PATIENT RECENTLY HAD DILAUDID AND IS NOT DUE FOR MORE UNTIL 48, THIS WAS EXPLAINED TO THE PATIENT.
[2018-12-27 01:00] VITALS: BP 174/89
--- NOTE | 2018-12-27 03:04 | NUR ---
PT BP IS 175/93 CALLED DOCTOR AND ORDERED LOPRESSURE FOR PT.
--- NOTE | 2018-12-27 04:23 | NUR ---
REST IN BED, CALL LIGHT IN REACH.
[2018-12-27 05:46] VITALS: BP 159/93
[2018-12-27 05:53] LABS: ALBUMIN 3.2 g/dL (3.4-5.0); ALKALINE PHOSPHATASE 113 U/L (46-116); ALT (SGPT) 30 U/L (10-68); BILIRUBIN - TOTAL 2.39 mg/dL (0.2-1.3); CALCIUM 7.9 mg/dL (8.5-10.1); CARBON DIOXIDE 25.1 mmol/L (21.0-32.0); CHLORIDE - SERUM 101 mmol/L (98-107); MAGNESIUM - SERUM 1.7 mg/dL (1.8-2.4); POTASSIUM - SERUM 4.5 mmol/L (3.5-5.1); PROTEIN - SERUM 6.8 g/dL (6.4-8.2); SODIUM 135 mmol/L (136-145)
[2018-12-27 05:57] LABS: BASOPHILS 0.1 % (0-2); EOSINOPHILS 1.4 % (0-7); HEMATOCRIT 33.2 % (36.0-48.0); IMMATURE GRANULOCYTES 0.2 % (0-5); LYMPHOCYTES 3.6 % (15-50); MCH 28.4 pg (26.0-34.0); MCHC 30.1 g/dL (31.0-37.0); MCV 94.3 fL (80.0-100.0); MEAN PLATELET VOLUME 10.3 fL (7.4-10.4); MONOCYTES 6.6 % (2-11); NEUTROPHILS 88.1 % (40-80); PLATELET COUNT 166 10x3/uL (130-400); RBC 3.52 10x6/uL (4.00-5.40); RDW 15.6 % (11.5-14.5); WBC 17.7 10x3/uL (4.8-10.8)
[2018-12-27 06:04] LABS: AMYLASE - SERUM 545 U/L (25-115); CALC OSMOLALITY 277 mosm/kg (275-300); CREATININE - SERUM 0.8 mg/dL (0.6-1.3); GLUCOSE 221 mg/dL (74-106); LIPASE 4412 U/L (73-393); UREA NITROGEN 16 mg/dL (7-18); eGFR NON AFRICAN AMERICAN 81 mL/min (90-120)
--- NOTE | 2018-12-27 06:43 | NUR ---
CALLED DR. JOSHI FOR PT'S [facility] LAB 193
--- NOTE | 2018-12-27 07:47 | NUR ---
REPORT RECEIVED. WILL CONTINUE WITH POC. UPON ENTERING THE ROOM PT IMMEDIATELY SAID "WHERE IS MY PAIN MEDS, I WAS DUE FOR THEM 30 MINUTES AGO, I WANT THEM NOW AND THE GOOD STUFF NOT THE MORPHINE BECAUSE IT WOULD BE A WASTE IN MY BODY." ADMINISTERED THE ORDERED DOSE OF DILUADID AND WHEN ASKED ABOUT PATIENTS PAIN SHE SAID "ITS A 10 FOR SURE, WORST PAIN EVER, I AM CRYING." PT IS NOT CRYING, PATIENT IS NOT VISUALLY DISTURBED. RR EVEN AND UNLABORED ON RA. NS INFUSING @KVO VIA L.FOR PIV. WILL CTM.
[2018-12-27 08:00] VITALS: BP 142/79
[2018-12-27 12:00] VITALS: BP 117/61
[2018-12-27 13:31] VITALS: Ht 154.9 cm; Wt 54.4 kg
--- NOTE | 2018-12-27 14:54 | NUR ---
PREVIOUS PIV INFILTRATED. REMOVED PIV WITH CATHETER TIP FULLY INTACT. STARTED NEW PIV 22 GA TO THE LEFT HAND. PT TOLERATED WELL. FLUSHED WITH 10CC OF NS. NS INFUSING @100ML/HR. WILL CTM.
[2018-12-27 16:00] VITALS: BP 143/79
--- NOTE | 2018-12-27 16:31 | NUR ---
ALERT AND ORIENTED X4. RESTING IN BED. FAMILY AT BEDSIDE. PAIN MANAGEMENT CONTINUED. NPO STATUS CONTINUED. AGREE WITH BROOD HATCHERY MANAGER ASSESSMENT. GABRIELLE SALINAS RESUMES PLAN OF CARE.
[2018-12-27 19:00] VITALS: BP 158/72
--- NOTE | 2018-12-27 19:52 | NUR ---
PATIENT IS RESTING IN HER BED. SHE DENIES ANY NEEDS. HER MOTHER IS AT BEDSIDE. BED IS DOWN LOW WITH SIDE RAILS UP X 2 AND CALL LIGHT IS IN REACH.
[2018-12-28 01:20] VITALS: BP 128/80
[2018-12-28 05:15] VITALS: BP 137/68
[2018-12-28 07:18] LABS: ALBUMIN 2.9 g/dL (3.4-5.0); ALKALINE PHOSPHATASE 115 U/L (46-116); ALT (SGPT) 29 U/L (10-68); CALC OSMOLALITY 279 mosm/kg (275-300); CARBON DIOXIDE 24.5 mmol/L (21.0-32.0); CHLORIDE - SERUM 106 mmol/L (98-107); CHOL - HDL RATIO 12.3 ratio (2.3-4.1); CHOLESTEROL, TOTAL 147 mg/dL (0-200); CREATININE - SERUM 0.8 mg/dL (0.6-1.3); HDL CHOLESTEROL 12 mg/dL (32-96); LDL CHOLESTEROL 87 mg/dL (0-100); LDL-HDL RATIO 7.3 ratio (1.5-3.5); LIPASE 1358 U/L (73-393); MAGNESIUM - SERUM 1.7 mg/dL (1.8-2.4); POTASSIUM - SERUM 4.3 mmol/L (3.5-5.1); PROTEIN - SERUM 6.3 g/dL (6.4-8.2); SODIUM 138 mmol/L (136-145); TRIGLYCERIDE 240 mg/dL (30-200); UREA NITROGEN 12 mg/dL (7-18); eGFR NON AFRICAN AMERICAN 81 mL/min (90-120)
[2018-12-28 07:19] LABS: AMYLASE - SERUM 259 U/L (25-115); GLUCOSE 171 mg/dL (74-106)
[2018-12-28 07:49] LABS: BASOPHILS 0.1 % (0-2); EOSINOPHILS 3.1 % (0-7); HEMATOCRIT 28.7 % (36.0-48.0); HEMOGLOBIN 8.5 g/dL (12-16); IMMATURE GRANULOCYTES 0.3 % (0-5); LYMPHOCYTES 6.3 % (15-50); MCH 28.1 pg (26.0-34.0); MCHC 29.6 g/dL (31.0-37.0); MEAN PLATELET VOLUME 10.3 fL (7.4-10.4); MONOCYTES 8.5 % (2-11); NEUTROPHILS 81.7 % (40-80); RBC 3.02 10x6/uL (4.00-5.40); RDW 15.9 % (11.5-14.5); WBC 14.7 10x3/uL (4.8-10.8)
[2018-12-28 07:56] LABS: PLATELET COUNT 125 10x3/uL (130-400)
[2018-12-28 08:31] VITALS: BP 131/75
[2018-12-28 12:30] VITALS: BP 140/72
--- NOTE | 2018-12-28 14:38 | NUR ---
PT RESTING IN BED. NO SIGNS OF DISTRESS. IV TO LEFT HAND PATENT NO REDNESS OR TENDERNESS. ON TELEMETRY 87 NORMAL SINUS. HAS BLISTER TO RIGHT SHOULDER. COMPLAINS OF PAIN. MEDICATION GIVEN. DENIES ANY FURTHER NEED AT THIS TIME. CALL LIGHT IN REACH. BED LOW POSITION. NO FAMILY AT BEDSIDE AT THIS TIME.
[2018-12-28 16:15] VITALS: BP 145/63
--- NOTE | 2018-12-28 16:27 | NUR ---
ALERT AND ORIENTED X4. CALLS FOR PAIN MEDICATION 20 MINS BEFORE IT CAN BE ADMINISTERED. BECOMES ANGRY WHEN NOT GIVEN WHEN ASKED. EXPLAIN PATIENT NURSE RATIO AND MEDICATIONS WILL BE GIVEN SOON POSSIBLE WHILE CARING FOR OTHER PATIENTS ON FLOOR. AGREE WITH AMMONIA WORKER ASSESSMENT. DEVAN, AMMONIA WORKER RESUMES PLAN OF CARE AND SAFETY PRECAUTIONS.
[2018-12-28 20:00] VITALS: BP 189/84
[2018-12-29] VITALS: BP 192/99
[2018-12-29 04:15] VITALS: BP 171/83
--- NOTE | 2018-12-29 04:20 | NUR ---
PATIENT RECEIVED SITTING UP IN BED WITH FAMILY IN ROOM. PATIENT ASSESSMENT & VITAL SIGNS DONE. BED LOW. IV PATENT WITH NS INFUSING. CALL LIGHT WITHIN REACH. WILL CONTINUE TO MONITOR.
[2018-12-29 07:47] LABS: BASOPHILS 0.2 % (0-2); EOSINOPHILS 3.6 % (0-7); HEMOGLOBIN 8.3 g/dL (12-16); IMMATURE GRANULOCYTES 0.2 % (0-5); LYMPHOCYTES 8.8 % (15-50); MCH 28.2 pg (26.0-34.0); MCHC 29.6 g/dL (31.0-37.0); MCV 95.2 fL (80.0-100.0); MEAN PLATELET VOLUME 10.5 fL (7.4-10.4); MONOCYTES 6.8 % (2-11); NEUTROPHILS 80.4 % (40-80); PLATELET COUNT 123 10x3/uL (130-400); RBC 2.94 10x6/uL (4.00-5.40); RDW 16.3 % (11.5-14.5)
[2018-12-29 08:14] LABS: ALBUMIN 2.8 g/dL (3.4-5.0); ALKALINE PHOSPHATASE 139 U/L (46-116); ALT (SGPT) 28 U/L (10-68); BILIRUBIN - TOTAL 4.35 mg/dL (0.2-1.3); CALC OSMOLALITY 276 mosm/kg (275-300); CALCIUM 8.5 mg/dL (8.5-10.1); CARBON DIOXIDE 22.1 mmol/L (21.0-32.0); CHLORIDE - SERUM 104 mmol/L (98-107); CREATININE - SERUM 0.7 mg/dL (0.6-1.3); GLUCOSE 132 mg/dL (74-106); LIPASE 1154 U/L (73-393); MAGNESIUM - SERUM 1.6 mg/dL (1.8-2.4); POTASSIUM - SERUM 4.1 mmol/L (3.5-5.1); PROTEIN - SERUM 6.6 g/dL (6.4-8.2); SODIUM 138 mmol/L (136-145); UREA NITROGEN 10 mg/dL (7-18); eGFR NON AFRICAN AMERICAN > 90 mL/min (90-120)
[2018-12-29 08:16] LABS: AMYLASE - SERUM 121 U/L (25-115)
[2018-12-29 08:29] LABS: BILIRUBIN - DIRECT 2.83 mg/dL (0.00-0.30); BILIRUBIN - INDIRECT 1.52 mg/dL (0.00-1.00)
[2018-12-29 09:24] LABS: WBC 9.5 10x3/uL (4.8-10.8)
[2018-12-29 09:41] VITALS: BP 164/80
[2018-12-29 13:27] VITALS: BP 120/48
--- NOTE | 2018-12-29 14:26 | NUR ---
Nutrition Follow Up: Pt remains NPO Pt reports she is newly diagnosed with diabetes and request information Briefly discused diabetic diet. Provided pt with milton Recommend pt follow up with outpatient dietitian-spoke with nursing and pt about this RD following
--- NOTE | 2018-12-29 15:33 | NUR ---
THE PATIENT WAS WATCHING TELEVISION WHEN STAFF ENTERED HER ROOM. BED IS IN TH ELOW POSITION WITH SIDERAILS X2 AND CALL LIGHT WITHIN REACH. THE PATIENT DEMONSTRATES APPROPRIATE USE OF A CALL LIGHT. THE PATIENT APPEARS COMFORTABLE WITH NO QUESTIONS OR CONCERNS AT THIS TIME.
--- NOTE | 2018-12-29 19:45 | NUR ---
PT SITTING UP IN BED, NO SIGNS OF DISTRESS. ALERT AND ORIENTED. MOTHER AT BEDSIDE. PAIN IN ABD 03/09, WILL GIVE DILAUDID ORDERED. IV LEFT HAND INFUSING NS @ 200. DENIES NEEDS AT THIS TIME. CL IN REACH, WILL CONT TO MONITOR
[2018-12-30] VITALS: BP 181/88
[2018-12-30 04:30] VITALS: BP 191/85
[2018-12-30 07:07] LABS: BASOPHILS 0.2 % (0-2); EOSINOPHILS 3.6 % (0-7); HEMATOCRIT 30.7 % (36.0-48.0); HEMOGLOBIN 9.1 g/dL (12-16); IMMATURE GRANULOCYTES 0.3 % (0-5); LYMPHOCYTES 11.1 % (15-50); MCH 28.6 pg (26.0-34.0); MCHC 29.6 g/dL (31.0-37.0); MCV 96.5 fL (80.0-100.0); MEAN PLATELET VOLUME 10.5 fL (7.4-10.4); MONOCYTES 7.3 % (2-11); NEUTROPHILS 77.5 % (40-80); RBC 3.18 10x6/uL (4.00-5.40); RDW 16.6 % (11.5-14.5); WBC 8.6 10x3/uL (4.8-10.8)
[2018-12-30 07:27] LABS: ALBUMIN 3.1 g/dL (3.4-5.0); ALKALINE PHOSPHATASE 167 U/L (46-116); ALT (SGPT) 28 U/L (10-68); BILIRUBIN - TOTAL 4.31 mg/dL (0.2-1.3); CALC OSMOLALITY 276 mosm/kg (275-300); CALCIUM 8.6 mg/dL (8.5-10.1); CHLORIDE - SERUM 104 mmol/L (98-107); CREATININE - SERUM 0.7 mg/dL (0.6-1.3); GLUCOSE 106 mg/dL (74-106); LIPASE 985 U/L (73-393); MAGNESIUM - SERUM 1.6 mg/dL (1.8-2.4); POTASSIUM - SERUM 3.9 mmol/L (3.5-5.1); PROTEIN - SERUM 7.3 g/dL (6.4-8.2); SODIUM 139 mmol/L (136-145); UREA NITROGEN 9 mg/dL (7-18); eGFR NON AFRICAN AMERICAN > 90 mL/min (90-120)
[2018-12-30 07:33] LABS: PLATELET COUNT 169 10x3/uL (130-400)
--- NOTE | 2018-12-30 08:00 | NUR ---
ASSESSMENT COMPLETE. IV TO L HAND PATENT. SAFE DEPOSIT CLERK SHOWING SR 72 PER TECH. DENIES ANY NEEDS AT THIS TIME.
[2018-12-30 09:39] VITALS: BP 83/85
--- NOTE | 2018-12-30 09:45 | NUR ---
DILAUDID GIVEN SLOW IVP FOR C/O BACK/ABDOMINAL PAIN. FAMILY AT BEDSIDE.
--- NOTE | 2018-12-30 12:00 | NUR ---
NO CHANGES NOTED AT THIS TIME.
[2018-12-30 12:53] VITALS: BP 183/82
--- NOTE | 2018-12-30 13:45 | NUR ---
TOLERATED CLEAR LIQUID DIET WITHOUT DIFFICULTY.
[2018-12-30 16:57] VITALS: BP 221/83
--- NOTE | 2018-12-30 18:17 | NUR ---
IV REMOVED. CATHETER TIP INTACT. CONTROLLED ATMOSPHERIC FURNACE BRAZER REMOVED. DISCHARGE TEACHING GIVEN TO PATIENT. VOICED UNDERSTANDING.
--- NOTE | 2018-12-30 18:20 | NUR ---
DC'D HOME WITH FAMILY WITH BELONGINGS.
--- NOTE | 2018-12-31 08:26 | MORECARE ---
CASE MANAGEMENT DISCHARGE SUMMARY PATIENT: HERIBERTO HUITRON UNIT: [id number] ADM DATE: 12/26/18 AGE: 48 : 72 SEX: F ROOM/BED: D.1207 AUTHOR: KIM,DOC PHYSICIAN: REFERRING PHYSICIAN: SHANT JOSHI MD DATE OF SERVICE: 12/31/18 Discharge Plan Patient Name: HERIBERTO HUITRON Facility: [facility]:[place] : 1970 Planned Disposition: Anticipated Discharge Date: 12/28/18 Discharge Date: 12/30/2018 Expected LOS: 2 Initial Reviewer: [email or web address] Initial Review Date: 12/26/2018 Generated: 12/31/18 9:26 am DCP- Discharge Planning Updated by [email or web address]: Nikole Hicks on 12/26/18 2:[address] Patient Name: HERIBERTO HUITRON Admission Status: ER Accout number: [id number] Admission Date: 12-26-2018 : 1970 Admission Diagnosis: Attending: SHANT JOSHI Current LOS: 1 Anticipated DC Date: 12-28-2018 Planned Disposition: Primary Insurance: [employer] [facility] Discharge Planning Comments: CM met with patient and her mother to complete initial dc planning assessment. CM educated patient on the CM role and verbal consent given by patient to complete assessment. Patient lives at home with her and their son. At discharge patient plans to return home and feels this is a safe discharge. CM discussed availability of home health, rehab services, and medical equipment. Patient denied known discharge needs at this time. CM will continue to follow and will assist as needed with dc plans/needs. Bioinformatics Software Engineer: Nikole Hicks RN, [facility] DCPIA - Discharge Planning Initial Assessment Updated by [email or web address]: Nikole Hicks on 12/26/18 3:46 pm * Is the patient Alert and Oriented? Yes * How many steps to enter\exit or inside your home? * PCP Dr. Nichols * Pharmacy [facility] on [address] * Preadmission Environment Home with Family * ADLs Independent * Equipment None * Other Equipment No know diabetes * List name and contact numbers for known caregivers / representatives who currently or will assist patient after discharge: Amarilis Castro - mother - [phone] Timi Huitron - - [phone] * Verbal permission to speak to the caregivers and representatives has been obtained from the patient. Yes * Community resources currently utilized None * Additional services required to return to the preadmission environment? No * Can the patient safely return to the preadmission environment? Yes * Has this patient been hospitalized within the prior 30 days at any hospital? No Last DP export: 12/26/18 2:51 p Patient Name: HERIBERTO HUITRON Page [id number] at 0826 All edits/amendments must be made on the electronic document DICTATION DATE: 12/31/18825 CHILDREN'S COUNSELOR: ADORE 12/31/18825 RPT#: [id number] DC DATE:12/30/18 STATUS: DIS IN [facility] [address] [place] [address] END OF REPORT
== END 2018-12-30 18:20 | disposition home or self-care (01) | DRG 440 ==
LOC: D.ER 10:16 → D.M3 14:03 → D.EDHOLD 14:03 → D.M3 15:54
PROVIDERS: Family Medicine; ADMIT Internal Medicine Nephrology; ATTEND Internal Medicine Nephrology
DX: K85.90 Acute pancreatitis without necrosis or infection, unspecified (principal); E10.65 Type 1 diabetes mellitus with hyperglycemia; F41.9 Anxiety disorder, unspecified; E80.6 Other disorders of bilirubin metabolism; D64.9 Anemia, unspecified; K76.0 Fatty (change of) liver, not elsewhere classified

== ENCOUNTER 2019-12-02 10:54 | Inpatient (IN) | payer BC ==
[~2019-12-02] VITALS: Ht 154.9 cm; Wt 56.8 kg
[~2019-12-02 10:54] MED LIST changes: +AUGMENTIN 875-11 TAB PO; +MEDROL DOSE PACK4 MG PO; +REQUIP0.5 MG PO
[2019-12-02 11:15] LABS: BILIRUBIN NEGATIVE (NEGATIVE); GLUCOSE NEGATIVE (NEGATIVE); KETONE SMALL mg/dL (NEGATIVE); NITRITE NEGATIVE (NEGATIVE); UROBILINOGEN 4 mg/dL (NORMAL)
[2019-12-02 11:17] LABS: BACTERIA MODERATE /hpf (NEGATIVE); RED CELLS - URINE 0-5 /hpf (0-5); WHITE CELLS - URINE 0-5 /hpf (NEGATIVE)
[2019-12-02 11:28] LABS: BASOPHILS 0.1 % (0-2); EOSINOPHILS 0.1 % (0-7); HEMATOCRIT 38.3 % (36.0-48.0); HEMOGLOBIN 11.8 g/dL (12-16); IMMATURE GRANULOCYTES 0.5 % (0-5); MCH 32.3 pg (26.0-34.0); MCHC 30.8 g/dL (31.0-37.0); MCV 104.9 fL (80.0-100.0); MEAN PLATELET VOLUME 9.6 fL (7.4-10.4); MONOCYTES 7.7 % (2-11); NEUTROPHILS 83.6 % (40-80); PLATELET COUNT 172 10x3/uL (130-400); RBC 3.65 10x6/uL (4.00-5.40); RDW 14.6 % (11.5-14.5); WBC 17.6 10x3/uL (4.8-10.8)
[2019-12-02 11:38] LABS: CALC OSMOLALITY 278 mosm/kg (275-300); CALCIUM 8.8 mg/dL (8.5-10.1); CARBON DIOXIDE 22.6 mmol/L (21.0-32.0); CHLORIDE - SERUM 97 mmol/L (98-107); POTASSIUM - SERUM 3.8 mmol/L (3.5-5.1); SODIUM 134 mmol/L (136-145); UREA NITROGEN 24 mg/dL (7-18); eGFR NON AFRICAN AMERICAN 63 mL/min (90-120)
[2019-12-02 11:40] LABS: GLUCOSE 223 mg/dL (74-106)
[2019-12-02 11:45] LABS: ALKALINE PHOSPHATASE 181 U/L (30-120); ALT (SGPT) 53 U/L (10-68); PROTEIN - SERUM 8.4 g/dL (6.4-8.2)
[2019-12-02 11:57] LABS: AMYLASE - SERUM 333 U/L (25-115); LIPASE 3813 U/L (73-393); TROPONIN-I < 0.017 ng/mL (0.000-0.060)
--- NOTE | 2019-12-02 11:59 | NUR ---
AMYLASE 333 [address]IS [address] DAVIS
[2019-12-02 12:10] LABS: APTT 25.7 SECONDS (22.8-39.4); INR 1.1 (0.85-1.17); PROTIME 14.1 SECONDS (11.6-15.0)
[2019-12-02 12:30] LABS: CKMB 1.2 U/L (0.0-3.6); CREATINE KINASE 45 UL (21-215)
--- NOTE | 2019-12-02 14:15 | NUR ---
RECEIVED TO ROOM 2227 VIA STRETCHER FROM ED. A/O X3. C/O ABDOMINAL PAIN LEVEL 7. WILL MONITOR. SKIN INTACT WITHOUT REDNESS. INSTRUCTED TO REMAIN NPO FOR RELIEF OF PAIN. WILL MONITOR.
[2019-12-02 14:16] VITALS: BP 187/93; Ht 154.9 cm; Wt 56.8 kg
[2019-12-02 14:45] LABS: % SATURATION 13 % (15-55); IRON 63 ug/dl (35-150); TOTAL IRON BIND CAPACITY 454 ug/dl (260-445); UNSAT IRON BIND CAPACITY 391 ug/dl (150-375)
[2019-12-02 17:04] VITALS: BP 183/89
--- NOTE | 2019-12-02 18:45 | NUR ---
WAS UP TO BR PER SELF AND PULLED IV OUT WITH CATHETER INTACT. RESITED TO RIGHT FOREARM AFTER ONE ATTEMPT WITH 20 GA. REQUESTED AND GIVEN 0.5MG DILAUDID SLOW IVP FOR C/O ABDOMINAL PAIN LEVEL 10. WILL MONITOR.
--- NOTE | 2019-12-02 19:15 | NUR ---
ALERT AND ORIENTED. COMPLAINS OF PAIN IN THE ABDOMEN, RIGHT SIDE. ABDOMEN DISTENDED. ACTIVE BS NOTED. REPORTS LAST BM 12/01/19 AND THAT IT WAS "NORMAL". DENIES FURTHER NEEDS. VERBALIZES UNDERSTANDING OF HOW TO USE CALL LIGHT. BED LOW. RIGHT FOREARM IV IS PATENT AND INFUSING. CPOC
[2019-12-02 21:37] VITALS: BP 174/84
--- NOTE | 2019-12-03 01:10 | NUR ---
PATIENT CRYING, IN PAIN WHEN ANSWERED CALL LIGHT. REQUESTING PAIN MEDICINE. ADMINISTERED DILAUDID PER ORDER. WASTED REMAINDER WITH MAICOL TORRES. DENIES FURTHER NEEDS. CPOC.
--- NOTE | 2019-12-03 02:34 | NUR ---
PATIENT RESTING WITH NO SIGNS OR SYMPTOMS OF DISTRESS AT THIS TIME. CPOC
--- NOTE | 2019-12-03 03:00 | NUR ---
I have reviewed this patient and I concur with the Shift Assessment completed by the Licensed Practical Nurse today this shift.
[2019-12-03 04:55] VITALS: BP 199/99
--- NOTE | 2019-12-03 04:58 | NUR ---
ADMINISTERED APRESOLINE PER ORDER FOR 199/99 BLOOD PRESSURE
[2019-12-03 05:22] VITALS: BP 158/89
[2019-12-03 06:14] LABS: HEMOGLOBIN 11.2 g/dL (12-16); MCHC 30.3 g/dL (31.0-37.0); MCV 105.7 fL (80.0-100.0); MEAN PLATELET VOLUME 9.7 fL (7.4-10.4); PLATELET COUNT 133 10x3/uL (130-400); RDW 14.7 % (11.5-14.5); WBC 22.2 10x3/uL (4.8-10.8)
[2019-12-03 06:34] LABS: ALBUMIN 3.3 g/dL (3.4-5.0); ANION GAP 14.3 mmol/L (8-16); BILIRUBIN - TOTAL 3.31 mg/dL (0.2-1.3); CALCIUM 7.3 mg/dL (8.5-10.1); CARBON DIOXIDE 24.8 mmol/L (21.0-32.0); CREATININE - SERUM 0.9 mg/dL (0.6-1.3); MAGNESIUM - SERUM 1.3 mg/dL (1.8-2.4); POTASSIUM - SERUM 4.1 mmol/L (3.5-5.1); PROTEIN - SERUM 7.1 g/dL (6.4-8.2)
[2019-12-03 06:41] LABS: LYMPHOCYTES 2 % (15-50); MONOCYTES 2 % (2-11); NEUTROPHILS 95 % (40-80); PLATELET ESTIMATE NORMAL
--- NOTE | 2019-12-03 06:48 | NUR ---
PAGED DR. MEJIA AND IMMEDIATE RETURN CALL. RELAYED AMYLASE AND LIPASE CRITICAL RESULTS. RECEIVED ORDER TO KEEP ON CLD AT THIS TIME.
[2019-12-03 08:00] VITALS: BP 175/70
[2019-12-03 16:00] VITALS: BP 154/86
[2019-12-03 20:00] VITALS: BP 163/77
--- NOTE | 2019-12-03 21:22 | NUR ---
PATIENT COMPLAINING OF PAIN. ADMINISTERED HS MEDICATIONS AND DILAUDID IV PER ORDER. PATIENT TOLERATED WELL. DENIES FURTHER NEEDS AT THIS TIME. CPOC.
--- NOTE | 2019-12-03 23:00 | NUR ---
ANSWERED PATIENT CALL LIGHT. PATIENT SEEMS CONFUSED, BUT REORIENTS EASILY. PATIENT HAS TAKEN DILAUDID ON PREVIOUS SHIFTS AND TOLERATED WELL. PATIENT STATED SHE IS HAVING TROUBLE SLEEPING BECAUSE OF THE NOISE OF DOORS SLAMMING. PATIENT THEN STARTS TALKING ABOUT SON AT HOME AND HOW SHE IS WORRIED ABOUT HIM. SHE THEN STARTS SPEAKING ABOUT THE DOCTORS AND WHEN THEY WILL BE HERE AND SHE HOPES ITS NOT LATE. PATIENT STATES SHE CAN'T STOP THINKING ABOUT POSSIBLY LEAVING TOMORROW AND NEEDING TO GET BACK TO HER CHILDREN. PATIENT THEN SAYS SHE JUST CANT SEEM TO TURN HER MIND OFF. SPOKE WITH MAICOL FERNANDEZ CHARGE NURSE ABOUT SITUATION. AGREED TO ADMINISTER PRN ATIVAN TO SEE IF IT WOULD HELP PATIENT REST.
[2019-12-04] VITALS: BP 158/77
--- NOTE | 2019-12-04 00:46 | NUR ---
PATIENT HAS BOOTS ON AND ATTEMPTING TO LEAVE. STATES SHE NEEDS TO GO OUTSIDE AND FIND DEBORAH. DEBORAH IS HER , SHE STATES AND THAT HES NOT ANSWERING HIS PHONE AND SHE DOESN'T KNOW WHERE HER CAR IS. REORIENTED PATIENT. PATIENT STATES SHE NEEDS TO LEAVE AND CAN SHE JUST SIGN OUT. ENCOURAGED PATIENT TO PLEASE STAY AND RECEIVE MEDICAL CARE. PATIENT AGREED AND RETURNED TO BED. ASKED PATIENT IF SHE HAD TAKEN ANY AT HOME MEDICATIONS. PATIENT DENIES. PATIENT HAS PURSE CLOSE TO HER IN BED. SHE IS NOT ON THE PHONE WITH SOMEONE AND IS GETTING LOUD AND UPSET.
--- NOTE | 2019-12-04 01:20 | NUR ---
PATIENT PACKED BELONGINGS AGAIN SAYING SHE WILL HAVE HER MOM PAY THE BILLS. EDUCATED PATIENT ON IMPORTANCE OF ADHEREING TO DOCTORS ORDERS. PATIENT REORIENTED BUT THEN SAYS "I SWEAR IM NOT ON ANYTHING. I JUST DON'T KNOW YOU GUYS THAT WELL AND IT'S JUST WEIRD."
--- NOTE | 2019-12-04 02:06 | NUR ---
PATIENT UP AND STATES
--- NOTE | 2019-12-04 02:35 | NUR ---
MOTHER RETURNED PHONE CALL. SPOKE WITH HER FOR SEVERAL MINUTES. SHE STATES THAT SHE DOESN'T THINK SHE'S HAD A REACTION TO MEDICATIONS LIKE THIS BUT THERES A POSSIBLITY THAT SHE MAY HAVE TAKEN SOMETHING FROM HER PURSE. MOTHER DID NOT KNOW WHAT MEDICATIONS OR IF SHE HAS ANYTHING BUT STATES "IT'S A GOOD POSSIBLITY THAT SHE COULD HAVE TAKEN SOMETHING." MOTHER ASKED TO TALK TO HER TO SEE IF SHE COULD CALM HER DOWN. TRANSFERRED PHONE CALL INTO ROOM AND ASSISTED PATIENT WITH PHONE.
--- NOTE | 2019-12-04 03:00 | NUR ---
I have reviewed this patient and I concur with the Shift Assessment completed by the Licensed Practical Nurse today this shift.
--- NOTE | 2019-12-04 03:02 | NUR ---
MOTHER CALLED TO TELL THIS NURSE THAT PATIENT IS HAVING LOTS OF TROUBLE WITH AND THAT ITS MAKING HER VERY STRESSED OUT. SHE ALSO SAID THAT IN THE PAST WHEN THE PATIENT HAS BEEN IN THE HOSPITAL SHES HAD REACTIONS TO PAIN MEDICINE AFTER SEVERAL DOSES. PATIENT CURRENTLY CALM AND IN BED ATTEMPTING TO REST.
[2019-12-04 04:00] VITALS: BP 159/91
--- NOTE | 2019-12-04 04:10 | NUR ---
PATIENT KNOCKING ON ROOM DOOR. OPENED TO CHECK ON PATIENT AND SHE STATED "I'M SORRY I JUST DIDNT WANT TO WALK IN YOUR HOUSE WITHOUT KNOCKING." REORIENTED PATIENT. ASSISTED BACK TO BED
--- NOTE | 2019-12-04 04:51 | NUR ---
PATIENT UP AND SAYING SHE IS LEAVING AGAIN. REORIENTED PATIENT AGAIN. SHE STATES "WELL I JUST FEEL LIKE IM GOING TO BE LEFT ALONE HERE AND I JUST WANT TO GO UP THERE" AND POINTS TOWARDS CEILING. TOLD PATIENT THAT THERE IS NOTHING "UP THERE" THAT SHE IS SAFE AND STAFF IS HERE 24/. ASSISTED BACK TO BED.
[2019-12-04 05:37] LABS: BASOPHILS 0.1 % (0-2); EOSINOPHILS 5.2 % (0-7); HEMATOCRIT 33.6 % (36.0-48.0); HEMOGLOBIN 10.1 g/dL (12-16); IMMATURE GRANULOCYTES 0.2 % (0-5); LYMPHOCYTES 3.6 % (15-50); MCHC 30.1 g/dL (31.0-37.0); MCV 106.3 fL (80.0-100.0); MEAN PLATELET VOLUME 10.1 fL (7.4-10.4); NEUTROPHILS 85.9 % (40-80); PLATELET COUNT 113 10x3/uL (130-400); RBC 3.16 10x6/uL (4.00-5.40); RDW 14.5 % (11.5-14.5)
--- NOTE | 2019-12-04 05:43 | NUR ---
PATIENT REMAINS ALTERED AND CONFUSED. CHARGE NURSE CAME TO SPEAK TO PATIENT TO CALM AND EDUCATE. PATIENT CALM AND SITTING IN CHAIR WATCHING TV AT THIS TIME.
[2019-12-04 06:09] LABS: ALBUMIN 3.3 g/dL (3.4-5.0); ALKALINE PHOSPHATASE 160 U/L (30-120); ALT (SGPT) 38 U/L (10-68); BILIRUBIN - TOTAL 3.61 mg/dL (0.2-1.3); CALC OSMOLALITY 272 mosm/kg (275-300); CALCIUM 7.3 mg/dL (8.5-10.1); CARBON DIOXIDE 25.4 mmol/L (21.0-32.0); CHLORIDE - SERUM 102 mmol/L (98-107); CREATININE - SERUM 0.8 mg/dL (0.6-1.3); GLUCOSE 122 mg/dL (74-106); MAGNESIUM - SERUM 1.4 mg/dL (1.8-2.4); POTASSIUM - SERUM 3.6 mmol/L (3.5-5.1); SODIUM 136 mmol/L (136-145); eGFR NON AFRICAN AMERICAN 81 mL/min (90-120)
[2019-12-04 06:10] LABS: WBC 16.2 10x3/uL (4.8-10.8)
[2019-12-04 06:11] LABS: AMYLASE - SERUM 389 U/L (25-115); LIPASE 3223 U/L (73-393); UREA NITROGEN 13 mg/dL (7-18)
--- NOTE | 2019-12-04 06:31 | NUR ---
I have reviewed this patient and I concur with the Shift Assessment completed by the Licensed Practical Nurse today this shift.
--- NOTE | 2019-12-04 06:45 | NUR ---
CALLED BARRIE SHORT APRN TO LET HER KNOW STATUS OF PATIENT THROUGH OUT NIGHT. RECEIVED ORDERS TO OBTAIN AMMONIA
--- NOTE | 2019-12-04 07:10 | NUR ---
PT IN BED. NO SIGNS OF DISTRESS. IV TO RIGHT FORARM PATENT NO REDNESS OR TENDERNESS. PT IS STATING THAT THE [place] ARE MOVING, THE ROOM IS SHAKING, AND ASKING IF I AM HEARING THE NOISES. NURSE I REORIENTED TO WHAT THE SITUATION IS. DISEASE INTERVENTION SPECIALIST AWARE AND MOTHER IS AWARE. MOTHER KEEPS CALLING UP TO NURSES STATION ASKING IF SHE IS REALLY BEING DISCHARGED. TOLD MOTHER SEVERAL TIMES THAT SHE IS NOT BEING DISCHARGED AT THIS TIME. PT STILL DEMANDING TO GO HOME. DENIES ANY FURTHER NEED. WILL CONTINUE TO MONITOR. BED LOW POSITION. NO FAMILY AT BEDSIDE AT THIS TIME.
[2019-12-04 08:26] VITALS: BP 186/96
[2019-12-04 13:09] VITALS: BP 149/75
--- NOTE | 2019-12-04 13:58 | NUR ---
I have reviewed this patient and I concur with the Shift Assessment completed by the Licensed Practical Nurse today this shift.
--- NOTE | 2019-12-04 19:05 | NUR ---
RECIEVED ORDERS FROM BARRIE RHODES TO PUT PT ON 72 HR HOLD FOR PSHYC. TRIED TO REORIENT PT. MAICOL PEREIRA WENT INTO PT ROOM ALONG WITH I TO ASK PT IF SHE HAD ANY MEDICATIONS IN HER BAG. PT HANDED TWO PILL BOTTLES BUT WILL NOT LET US LOOK THROUGH BAG. PT ALSO DID NOT UNDERSTAND ABOUT THE 72HR HOLD TRIED TO EXPLAIN TO PT AND ORIENT HER. PT AT THIS TIME IS UNABLE TO COMPREHEND ABOUT THIS. WILL CONTINUE TO MONITOR.
[2019-12-04 20:00] VITALS: BP 208/106
--- NOTE | 2019-12-04 20:30 | NUR ---
PT EXTREMELY ANXIOUS AND FEARFUL. AUDITORY AND VISUAL HALLUCINATIONS. PT SAID SHE SAW A FERRIT IN HER ROOM AND WAS WORRIED BECAUSE SHE IS ALLERGIC TO FERRITS. SHE STATED HER HUSBANDS FRIENDS ARE WATCHING HER THROUGH THE WINDOW AND WILL TELL HIM THINGS ABOUT HER HE'LL BE MAD ABOUT. STATES SHE HEARS A RADIO PLAYING MUSIC. PT SEEMS TO BELIEVE THE HOSPITAL IS LIKE A HOME AND EVERYONE HERE AND THE STAFF ARE RELATED TO EACH OTHER. SHE IS EXTREMELY WORRIED ABOUT HER SON AND WHAT HER IS SAYING ABOUT HER. PT'S BP WAS ELEVATED. GAVE PRN APRESOLINE TO BRING IT DOWN. PT STATES SHE WILL TRY TO SLEEP. WILL CONTINUE TO MONITOR.
[2019-12-05] VITALS: BP 190/105
[2019-12-05 03:10] LABS: UDS - AMPHET NEGATIVE QUAL (NEGATIVE); UDS - BARB NEGATIVE QUAL (NEGATIVE); UDS - BENZO NEGATIVE QUAL (NEGATIVE); UDS - COCAINE NEGATIVE QUAL (NEGATIVE); UDS - OPIATE POSITIVE QUAL (NEGATIVE); UDS - PCP NEGATIVE QUAL (NEGATIVE); UDS - THC NEGATIVE QUAL (NEGATIVE)
[2019-12-05 04:00] VITALS: BP 146/75
[2019-12-05 04:46] LABS: BASOPHILS 0.1 % (0-2); EOSINOPHILS 4.5 % (0-7); HEMATOCRIT 31.6 % (36.0-48.0); HEMOGLOBIN 9.6 g/dL (12-16); IMMATURE GRANULOCYTES 0.4 % (0-5); LYMPHOCYTES 4.2 % (15-50); MCH 31.5 pg (26.0-34.0); MCHC 30.4 g/dL (31.0-37.0); MEAN PLATELET VOLUME 9.8 fL (7.4-10.4); MONOCYTES 5.3 % (2-11); NEUTROPHILS 85.5 % (40-80); PLATELET COUNT 122 10x3/uL (130-400); RBC 3.05 10x6/uL (4.00-5.40); RDW 14.5 % (11.5-14.5); WBC 13.7 10x3/uL (4.8-10.8)
[2019-12-05 04:49] LABS: MCV 103.6 fL (80.0-100.0)
[2019-12-05 05:07] LABS: ALBUMIN 3.1 g/dL (3.4-5.0); ALKALINE PHOSPHATASE 184 U/L (30-120); ALT (SGPT) 37 U/L (10-68); BILIRUBIN - TOTAL 3.12 mg/dL (0.2-1.3); CALC OSMOLALITY 275 mosm/kg (275-300); CALCIUM 7.7 mg/dL (8.5-10.1); CARBON DIOXIDE 21.9 mmol/L (21.0-32.0); CHLORIDE - SERUM 104 mmol/L (98-107); CREATININE - SERUM 0.8 mg/dL (0.6-1.3); GLUCOSE 136 mg/dL (74-106); MAGNESIUM - SERUM 1.4 mg/dL (1.8-2.4); POTASSIUM - SERUM 3.5 mmol/L (3.5-5.1); PROTEIN - SERUM 6.7 g/dL (6.4-8.2); SODIUM 137 mmol/L (136-145); UREA NITROGEN 12 mg/dL (7-18); eGFR NON AFRICAN AMERICAN 81 mL/min (90-120)
[2019-12-05 05:16] LABS: AMYLASE - SERUM 208 U/L (25-115)
[2019-12-05 05:40] LABS: LIPASE 2149 U/L (73-393)
--- NOTE | 2019-12-05 08:31 | NUR ---
AWAKE AND ALERT. ORIENTED X3. NO C/O AT THIS TIME. DENIES NEEDS. LUNGS ARE CLEAR BILATERALLY, NO COUGH NOTED. SKIN IS INTACT WITHOUT REDNESS. IV TO RIGHT FOREARM IS PATENT WITHOUT REDNESS AT INSERTION SITE. REPORTS NORMAL BOWEL PATTERN.
[2019-12-05 08:53] VITALS: BP 169/91
--- NOTE | 2019-12-05 09:30 | NUR ---
ATE MOST OF BREAKFAST. TOOK AM MEDS WITHOUT DIFFICULTY. DENIES NEEDS. NO CONFUSION NOTED.
--- NOTE | 2019-12-05 12:00 | NUR ---
LUNCH SERVED IN ROOM. IV TO RIGHT FOREARM IS INFILTRATED. D/C WITH CATHETER INTACT. RESITED TO RIGHT WRIST AFTER ONE ATTEMPT WITH 22 G. TOLERATED WELL. WARM PACK PLACED TO RIGHT FOREARM. WILL MONITOR
[2019-12-05 12:13] VITALS: BP 175/71
[2019-12-05 16:58] VITALS: BP 162/84
--- NOTE | 2019-12-05 19:30 | NUR ---
PT SITTING UP IN BED WITHOUT DISTRESS, AOX4. IV RIGHT WRIST INFUSING NS @ 75. DENIES PAIN OR NEEDS AT THIS TIME. CL IN REACH, WILL CTM
--- NOTE | 2019-12-05 19:31 | NUR ---
ATE ALL OF SUPPER. NO CHANGES NOTED. DENIES NEEDS.
--- NOTE | 2019-12-05 19:48 | MORECARE ---
CASE MANAGEMENT DISCHARGE SUMMARY PATIENT: HERIBERTO HUITRON UNIT: [id number] ADM DATE: 12/02/19 AGE: 49 : 71 SEX: F ROOM/BED: D.2213 AUTHOR: ZELDA ALVAREZ PHYSICIAN: REFERRING PHYSICIAN: JONATHAN ANDINO MD DATE OF SERVICE: 12/05/19 Discharge Plan Patient Name: HERIBERTO HUITRON Facility: [facility]:[place] : 1970 Planned Disposition: Anticipated Discharge Date: Discharge Date: Expected LOS: Initial Reviewer: [email or web address] Initial Review Date: 12/02/2019 Generated: 12/05/19 8:48 pm DCPIA - Discharge Planning Initial Assessment Updated by [email or web address]: Jamilah Henley on 12/05/19 7:46 pm * Is the patient Alert and Oriented? Yes * How many steps to enter\exit or inside your home? 12 * PCP [facility] * [facility] * Preadmission Environment Home with Family * ADLs Independent * Equipment None * List name and contact numbers for known caregivers / representatives who currently or will assist patient after discharge: STANISLAV MATHEWS [facility] [phone] * Verbal permission to speak to the caregivers and representatives has been obtained from the patient. Yes * Community resources currently utilized None * Additional services required to return to the preadmission environment? No * Can the patient safely return to the preadmission environment? Yes * Has this patient been hospitalized within the prior 30 days at any hospital? No Patient Name: HERIBERTO HUITRON Page 65135 at 1947 All edits/amendments must be made on the electronic document DICTATION DATE: 12/05/191947 TOBACCO DRUMMER: ADORE 12/05/191947 RPT#: [id number] DC DATE: STATUS: ADM IN [facility] [address] [place] [address] END OF REPORT
--- NOTE | 2019-12-05 19:55 | MORECARE ---
CASE MANAGEMENT DISCHARGE SUMMARY PATIENT: HERIBERTO HUITRON UNIT: [id number] ADM DATE: 12/02/19 AGE: 49 : 71 SEX: F ROOM/BED: D.2213 AUTHOR: KIM,DOC PHYSICIAN: REFERRING PHYSICIAN: JONATHAN ANDINO MD DATE OF SERVICE: 12/05/19 Discharge Plan Patient Name: HERIBERTO HUITRON Facility: [facility]:[place] : 1970 Planned Disposition: Anticipated Discharge Date: Discharge Date: Expected LOS: Initial Reviewer: [email or web address] Initial Review Date: 12/02/2019 Generated: 12/05/19 8:54 pm Comments DCP- Discharge Planning Updated by [email or web address]: Jamilah Henley on 12/05/19 6:[address] Patient Name: HERIBERTO HUITRON Admission Status: ER Accout number: [id number] Admission Date: 12-02-2019 : 1970 Admission Diagnosis:SEPSIS, UNSPECIFIED ORGANISM Attending: DEEPAK Current LOS: 3 Anticipated DC Date: Planned Disposition: Primary Insurance: [employer] [facility] Discharge Planning Comments: CM met with patient to complete initial dc planning assessment. CM educated patient on the CM role and verbal consent given by patient to complete assessment. Patient lives at home with her and son. At discharge patient plans to return home and feels this is a safe discharge. CM discussed availability of home health, rehab services, and medical equipment. Patient denied known discharge needs at this time. CM will continue to follow and will assist as needed with dc plans/needs. Pipeline Technician: Jamilah Henley DCPIA - Discharge Planning Initial Assessment Updated by [email or web address]: Jamilah Henley on 12/05/19 7:46 pm * Is the patient Alert and Oriented? Yes * How many steps to enter\exit or inside your home? 12 * PCP [facility] * [facility] * Preadmission Environment Home with Family * ADLs Independent * Equipment None * List name and contact numbers for known caregivers / representatives who currently or will assist patient after discharge: STANISLAV MATHEWS - [facility]- [phone] * Verbal permission to speak to the caregivers and representatives has been obtained from the patient. Yes * Community resources currently utilized None * Additional services required to return to the preadmission environment? No * Can the patient safely return to the preadmission environment? Yes * Has this patient been hospitalized within the prior 30 days at any hospital? No Last DP export: 12/05/19 6:48 pm Patient Name: HERIBERTO HUITRON Page 14306 at 1954 All edits/amendments must be made on the electronic document DICTATION DATE: 12/05/191953 SCIENTIFIC LABORATORY SUPERVISOR: ADORE 12/05/191953 RPT#: [id number] [place] DATE: STATUS: ADM IN [facility] [address] [place] [address] END OF REPORT
[2019-12-05 20:00] VITALS: BP 174/96
--- NOTE | 2019-12-05 21:00 | NUR ---
MEDS GIVEN ORDERED. FSBS 120, NO COVERAGE NEEDED. DENIES NEEDS. WILL CTM
[2019-12-06] VITALS: BP 188/113
[2019-12-06 04:00] VITALS: BP 165/81
[2019-12-06 05:19] LABS: BASOPHILS 0.1 % (0-2); EOSINOPHILS 5.5 % (0-7); HEMOGLOBIN 9.9 g/dL (12-16); IMMATURE GRANULOCYTES 0.5 % (0-5); LYMPHOCYTES 5.3 % (15-50); MCHC 30.9 g/dL (31.0-37.0); MCV 103.6 fL (80.0-100.0); MEAN PLATELET VOLUME 9.6 fL (7.4-10.4); MONOCYTES 7.8 % (2-11); NEUTROPHILS 80.8 % (40-80); RBC 3.09 10x6/uL (4.00-5.40); RDW 14.8 % (11.5-14.5); WBC 10.8 10x3/uL (4.8-10.8)
[2019-12-06 05:26] LABS: PLATELET COUNT 150 10x3/uL (130-400)
[2019-12-06 05:46] LABS: ALBUMIN 3.1 g/dL (3.4-5.0); ALKALINE PHOSPHATASE 196 U/L (30-120); ALT (SGPT) 31 U/L (10-68); AMYLASE - SERUM 234 U/L (25-115); BILIRUBIN - TOTAL 2.97 mg/dL (0.2-1.3); CALC OSMOLALITY 275 mosm/kg (275-300); CALCIUM 7.9 mg/dL (8.5-10.1); CHLORIDE - SERUM 103 mmol/L (98-107); CREATININE - SERUM 0.7 mg/dL (0.6-1.3); GLUCOSE 129 mg/dL (74-106); MAGNESIUM - SERUM 1.4 mg/dL (1.8-2.4); POTASSIUM - SERUM 3.7 mmol/L (3.5-5.1); PROTEIN - SERUM 6.8 g/dL (6.4-8.2); SODIUM 137 mmol/L (136-145); UREA NITROGEN 12 mg/dL (7-18); eGFR NON AFRICAN AMERICAN > 90 mL/min (90-120)
[2019-12-06 06:17] LABS: LIPASE 3779 U/L (73-393)
--- NOTE | 2019-12-06 07:45 | NUR ---
CALLED DR ALVARADO ABOUT PATIENTS CARDIAC ENZYMES. WELL THE CONVERSATION THE PATIENT HAD WITH ME ABOUT NOT WANTING TO HAVE SURGERY, THAT SHE HAS 2 TIMES OFF OF ANESTHESIA, AND THAT SHE HASN'T HAD ANYTHING TO EAT SINCE SHE HAS BEEN HERE. WANTS TO LEAVE AND GO BACK HOME. WANTS HER SON INVOLVED IN HER TREATMENT. DR ALVARADO ADVISED THAT HE WOULD BE OVER SOON AND THAT SHE DOES HAVE AORTIC STENOSIS.
[2019-12-06 07:47] VITALS: BP 192/102
[2019-12-06] MEDS ORDERED: MAG-OXIDE400 MG PO (09:31)
[2019-12-06] MEDS ORDERED: LEVOFLOXACIN500 MG PO (09:31)
--- NOTE | 2019-12-06 11:56 | MORECARE ---
CASE MANAGEMENT DISCHARGE SUMMARY PATIENT: HERIBERTO HUITRON UNIT: [id number] ADM DATE: 12/02/19 AGE: 49 : 72 SEX: F ROOM/BED: D.2213 AUTHOR: KIMDOC PHYSICIAN: REFERRING PHYSICIAN: JONATHAN ANDINO MD DATE OF SERVICE: 12/06/19 Discharge Plan Patient Name: HERIBERTO HUITRON Facility: [facility]:[place] : 1970 Planned Disposition: Anticipated Discharge Date: Discharge Date: Expected LOS: Initial Reviewer: [email or web address] Initial Review Date: 12/02/2019 Generated: 12/06/19 12:56 pm Comments DCP- Discharge Planning Updated by [email or web address]: Susana Estrada on 12/06/19 10:[address] Patient Name: HERIBERTO HUITRON Encounter No: [id number] : 1970 Primary Insurance: [employer] PPO Anticipated DC Date: Planned Disposition: External Planned Provider: : DCP follow-up note: Patient and family in agreement with discharge plan. No changes to plan. Case management will follow and assist as needed. Susana Estrada DCP- Discharge Planning Updated by [email or web address]: Jamilah Henley on 12/05/19 6:[address] Patient Name: HERIBERTO HUITRON Admission Status: ER Accout number: [id number] Admission Date: 12-02-2019 : 1970 Admission Diagnosis:SEPSIS, UNSPECIFIED ORGANISM Attending: DEEPAK Current LOS: 3 Anticipated DC Date: Planned Disposition: Primary Insurance: [employer] Discharge Planning Comments: CM met with patient to complete initial dc planning assessment. CM educated patient on the CM role and verbal consent given by patient to complete assessment. Patient lives at home with her and son. At discharge patient plans to return home and feels this is a safe discharge. CM discussed availability of home health, rehab services, and medical equipment. Patient denied known discharge needs at this time. CM will continue to follow and will assist as needed with dc plans/needs. Tire Cord Weaver: Jamilah Henley DCPIA - Discharge Planning Initial Assessment Updated by [email or web address]: Jamilah Henley on 12/05/19 7:46 pm * Is the patient Alert and Oriented? Yes * How many steps to enter\exit or inside your home? 12 * PCP [facility] * [facility]acy [facility] * Preadmission Environment Home with Family * ADLs Independent * Equipment None * List name and contact numbers for known caregivers / representatives who currently or will assist patient after discharge: STANISLAV MATHEWS [facility]- [phone] * Verbal permission to speak to the caregivers and representatives has been obtained from the patient. Yes * Community resources currently utilized None * Additional services required to return to the preadmission environment? No * Can the patient safely return to the preadmission environment? Yes * Has this patient been hospitalized within the prior 30 days at any hospital? No Last DP export: 12/05/19 6:55 pm Patient Name: HERIBERTO HUITRON Page 31000 at 1156 All edits/amendments must be made on the electronic document DICTATION DATE: 12/06/19 1156 FIRE TENDER: ADORE 12/06/19 1156 RPT#: [id number] DC DATE: STATUS: ADM IN [facility] [address] [place] [address] END OF REPORT
[2019-12-06 12:13] VITALS: BP 172/79
--- NOTE | 2019-12-06 12:42 | CN ---
PATIENT NAME:HERIBERTO HUITRON MEDICAL RECORD: [id number] : [birth year] LOCATION:D.MS [facility] ADMIT DATE: 12/02/19 ACCOUNT: [id number] CONSULTING PHYSICIAN: PADMINI OTERO MD REFERRING PHYSICIAN: JONATHAN ANDINO MD DATE OF CONSULTATION: 12/05/2019 IDENTIFYING DATA: The patient is a 49-year-old and she is admitted to the hospital on a voluntary basis. CHIEF COMPLAINT: Abdominal pain. HISTORY OF PRESENT ILLNESS: The patient has pancreatitis. She has a lipase level greater than 3000. GI has seen her and felt the pancreatitis is not related to alcohol, which she denies, but that it is related to steroids and dehydration. The patient apparently was quite confused. At this point, she is not displaying significant confusion. She is fully oriented, cooperative, and has a euthymic mood. She says that she thinks that she became confused because of the medication she was receiving which is probably correct. ASSESSMENT: Delirium, resolved or resolving. PLAN: At this time, the patient shows no evidence of acute or direct dangerousness to herself or others. She has essentially normal with mental status exam. Certainly tapering of her Librium would be something that I would recommend as her course of treatment here progresses. TRANSINT:[id number] Voice Confirmation ID: [id number] DOCUMENT ID: [id number] PADMINI OTERO MD at 1242 CC: [id number] DICTATION DATE: 12/05/191814 LIVESTOCK RANCHER: 12/05/19 1829 ADM IN [facility] [address] [place] [address]
--- NOTE | 2019-12-06 13:00 | NUR ---
IV THERAPY REMOVED FROM RIGHT FOREARM WITH TIP INTACT. DISCHARGE INSTRUCTIONS GIVEN. PATIENT VERBALIZED UNDERSTANDING. CL IN REACH. WILL LET ME KNOW WHEN HER RIDE GETS HER TO TAKE HER DOWNSTAIRS.
--- NOTE | 2019-12-07 18:16 | MORECARE ---
CASE MANAGEMENT DISCHARGE SUMMARY PATIENT: HERIBERTO HUITRON UNIT: [id number] ADM DATE: 12/02/19 AGE: 49 : 72 SEX: F ROOM/BED: D.2213 AUTHOR: KIM,DOC PHYSICIAN: REFERRING PHYSICIAN: JONATHAN ANDINO MD DATE OF SERVICE: 12/07/19 Discharge Plan Patient Name: HERIBERTO HUITRON Facility: [facility]:[place] : 1970 Planned Disposition: Anticipated Discharge Date: Discharge Date: 12/06/2019 Expected LOS: 0 Initial Reviewer: [email or web address] Initial Review Date: 12/02/2019 Generated: 12/07/19 7:15 pm Comments DCP- Discharge Planning Updated by [email or web address]: Susana Estrada on 12/06/19 10:[address] Patient Name: HERIBERTO HUITRON Encounter No: [id number] : 1970 Primary Insurance: [employer] PPO Anticipated DC Date: Planned Disposition: External Planned Provider: : DCP follow-up note: Patient and family in agreement with discharge plan. No changes to plan. Case management will follow and assist as needed. Susana Estrada DCP- Discharge Planning Updated by [id number]: Jamilah Henley on 12/05/19 6:[address] Patient Name: HERIBERTO HUITRON Admission Status: ER Accout number: [id number] Admission Date: 12-02-2019 : 1970 Admission Diagnosis:SEPSIS, UNSPECIFIED ORGANISM Attending: DEEPAK Current LOS: 3 Anticipated DC Date: Planned Disposition: Primary Insurance: [employer] PPO Discharge Planning Comments: CM met with patient to complete initial dc planning assessment. CM educated patient on the CM role and verbal consent given by patient to complete assessment. Patient lives at home with her and son. At discharge patient plans to return home and feels this is a safe discharge. CM discussed availability of home health, rehab services, and medical equipment. Patient denied known discharge needs at this time. CM will continue to follow and will assist as needed with dc plans/needs. Admitting Interviewer: Jamilah Henley DCPIA - Discharge Planning Initial Assessment Updated by [email or web address]: Jamilah Henley on 12/05/19 7:46 pm * Is the patient Alert and Oriented? Yes * How many steps to enter\exit or inside your home? 12 * PCP [facility] * [facility] * Preadmission Environment Home with Family * ADLs Independent * Equipment None * List name and contact numbers for known caregivers / representatives who currently or will assist patient after discharge: STANISLAV MATHEWS [facility] [phone] * Verbal permission to speak to the caregivers and representatives has been obtained from the patient. Yes * Community resources currently utilized None * Additional services required to return to the preadmission environment? No * Can the patient safely return to the preadmission environment? Yes * Has this patient been hospitalized within the prior 30 days at any hospital? No Last DP export: 12/06/19 10:56 am Patient Name: HERIBERTO HUITRON Page 19859 at 1816 All edits/amendments must be made on the electronic document DICTATION DATE: 12/07/191814 MISSION WORKER: ADORE 12/07/191814 RPT#: [id number] DC DATE:12/06/19 STATUS: DIS IN [facility] [address] [place] [address] END OF REPORT
== END 2019-12-06 15:11 | disposition home or self-care (01) | DRG 871 ==
LOC: D.ER 10:54 → D.MS 12:09
PROVIDERS: Family Medicine; ADMIT Family Medicine; ATTEND Family Medicine
DX: A41.9 Sepsis, unspecified organism (principal); K85.90 Acute pancreatitis without necrosis or infection, unspecified; G93.41 Metabolic encephalopathy; F10.231 Alcohol dependence with withdrawal delirium; M87.851 Other osteonecrosis, right femur; E86.0 Dehydration; D53.9 Nutritional anemia, unspecified; R00.0 Tachycardia, unspecified; E11.9 Type 2 diabetes mellitus without complications; F41.9 Anxiety disorder, unspecified

== ENCOUNTER 2020-02-20 15:05 | Inpatient (IN) | payer BC ==
[~2020-02-20] VITALS: Ht 154.9 cm; Wt 67.3 kg
[~2020-02-20 15:05] MED LIST changes: +LEVOFLOXACIN500 MG PO; +MAG-OXIDE400 MG PO
[2020-02-20] MEDS ORDERED: TORADOL10 MG PO (15:34)
[2020-02-20 16:30] LABS: BASOPHILS 0.1 % (0-2); EOSINOPHILS 3.7 % (0-7); HEMATOCRIT 34.8 % (36.0-48.0); IMMATURE GRANULOCYTES 0.3 % (0-5); LYMPHOCYTES 4.6 % (15-50); MCH 31.8 pg (26.0-34.0); MCHC 31.6 g/dL (31.0-37.0); MCV 100.6 fL (80.0-100.0); MEAN PLATELET VOLUME 9.9 fL (7.4-10.4); MONOCYTES 5.8 % (2-11); NEUTROPHILS 85.5 % (40-80); PLATELET COUNT 122 10x3/uL (130-400); RBC 3.46 10x6/uL (4.00-5.40); RDW 16.3 % (11.5-14.5); WBC 18.8 10x3/uL (4.8-10.8)
[2020-02-20 16:45] LABS: APTT 31.1 SECONDS (22.8-39.4); INR 1.12 (0.85-1.17); PROTIME 14.3 SECONDS (11.6-15.0)
[2020-02-20 17:16] LABS: BILIRUBIN NEGATIVE (NEGATIVE); GLUCOSE NEGATIVE (NEGATIVE); KETONE MODERATE mg/dL (NEGATIVE); NITRITE NEGATIVE (NEGATIVE); UROBILINOGEN 8 mg/dL (NORMAL)
[2020-02-20 17:19] LABS: UDS - AMPHET NEGATIVE QUAL (NEGATIVE); UDS - BARB NEGATIVE QUAL (NEGATIVE); UDS - BENZO NEGATIVE QUAL (NEGATIVE); UDS - COCAINE NEGATIVE QUAL (NEGATIVE); UDS - OPIATE POSITIVE QUAL (NEGATIVE); UDS - PCP NEGATIVE QUAL (NEGATIVE); UDS - THC NEGATIVE QUAL (NEGATIVE)
[2020-02-20 17:21] LABS: BACTERIA MODERATE /hpf (NEGATIVE); EPITHELIAL CELLS OCC /hpf (0-5); RED CELLS - URINE 0-5 /hpf (0-5); WHITE CELLS - URINE 0-5 /hpf (NEGATIVE)
[2020-02-20 17:41] LABS: ALKALINE PHOSPHATASE 289 U/L (30-120); ALT (SGPT) 49 U/L (10-68); BILIRUBIN - TOTAL 8.87 mg/dL (0.2-1.3); CALC OSMOLALITY 268 mosm/kg (275-300); CALCIUM 9.3 mg/dL (8.5-10.1); CARBON DIOXIDE 24.2 mmol/L (21.0-32.0); CHLORIDE - SERUM 91 mmol/L (98-107); GLUCOSE 121 mg/dL (74-106); POTASSIUM - SERUM 4.1 mmol/L (3.5-5.1); PROTEIN - SERUM 8.3 g/dL (6.4-8.2); SODIUM 131 mmol/L (136-145); TROPONIN-I < 0.017 ng/mL (0.000-0.060); UREA NITROGEN 26 mg/dL (7-18); eGFR NON AFRICAN AMERICAN 63 mL/min (90-120)
[2020-02-20 17:46] LABS: AMYLASE - SERUM 561 U/L (25-115); LIPASE 5968 U/L (73-393)
[2020-02-20 20:12] VITALS: BP 188/96
--- NOTE | 2020-02-20 20:40 | NUR ---
RECEIVED PT FROM ER VIA STRETCHER. STATES SHE USED TO DRINK ALOT BUT HASNT HAD A DRINK IN 5 YEARS. REPORTS ABD PAIN. SKIN IS JAUNDICED. STATES SHE FEELS LIKE SHE HAS SOMETHING STUCK IN HER THROAT AND IT WONT GO DOWN WHEN SHE SWALLOWS. ANXIOUS AND RESTLESS. ABLE TO ANSWER MOST QUESTIONS. MOTHER AT BEDSIDE. NS @ 125 ML/HR INFUSING IN LT FOREARM. INSTRUCTED OF NPO STATUS EXCEPT FOR MEDS. NO TELEMETRY AVAILABLE. HAS HX OF HTN. B/P IS ELEVATED. SR ELEVATED X2. CL IN REACH. AMBULATORY. NO ACUTE DISTRESS.
[2020-02-21] VITALS (7 sets, daily range): BP systolic 133–196; BP diastolic 58–99; Ht 154.9 cm; Wt 67.3 kg
--- NOTE | 2020-02-21 00:30 | NUR ---
MEDICATED WITH MORPHINE AND ZOFRAN FOR C/O ABD PAIN. CL IN REACH.
[2020-02-21 05:57] LABS: BASOPHILS 0.2 % (0-2); EOSINOPHILS 5.5 % (0-7); HEMATOCRIT 31.5 % (36.0-48.0); HEMOGLOBIN 9.7 g/dL (12-16); IMMATURE GRANULOCYTES 0.3 % (0-5); LYMPHOCYTES 4.3 % (15-50); MCH 31.1 pg (26.0-34.0); MCHC 30.8 g/dL (31.0-37.0); MEAN PLATELET VOLUME 9.7 fL (7.4-10.4); MONOCYTES 7.7 % (2-11); PLATELET COUNT 121 10x3/uL (130-400); RBC 3.12 10x6/uL (4.00-5.40); RDW 16.6 % (11.5-14.5)
[2020-02-21 06:48] LABS: WBC 12.7 10x3/uL (4.8-10.8)
[2020-02-21 07:08] LABS: ALBUMIN 3.4 g/dL (3.4-5.0); ANION GAP 16.4 mmol/L (8-16); BILIRUBIN - TOTAL 6.55 mg/dL (0.2-1.3); CALCIUM 8.2 mg/dL (8.5-10.1); CARBON DIOXIDE 24.6 mmol/L (21.0-32.0); CREATININE - SERUM 0.9 mg/dL (0.6-1.3); MAGNESIUM - SERUM 1.9 mg/dL (1.8-2.4); PROTEIN - SERUM 6.8 g/dL (6.4-8.2)
--- NOTE | 2020-02-21 13:38 | NUR ---
PT S VERY CONFUSED AND STATED SHE NEEDS TO KNOW WHO IS PAYING FOR HER ROOM. PT STATES SHE HEARS SOME REALLY GOOD MUSIC, PT HAS MOM AND SON AT BEDSIDE. WENT THROUGH PT PURSE AND PT HAS TORADOL 10MG TABS (13 PILLS) ZOFRAN ( 4 PILLS) AND METROPOLOL ( 42.5 PILLS) CONTINUE WITH PLAN OF CARE
--- NOTE | 2020-02-21 21:07 | NUR ---
1929)CHGE OF SHIFT WALKING ROUNDS NOT IN ROOM IV OUT AND RUNNING STILL. PATIENT AND MOTHER ARGUING,IN HALLWAY.ASSISTED TO ROOM MOTHER BROUGHT TO [facility] STATION. CONTINUES TO ARGUE AT DESK.SECURITY CALLED.BARRIE WISEMAN APN CALLED NOTIFIED OF SITUATION.ONE TIME ATIVAN 1MG GIVEN IM RIGHT UPPER OUTER HIP ORDERED.1999) CONTINUES TO TRY AND LEAVE SECURITY REMAINS IN ATTENDANCE DISCUSSED WITH RANDALL HOLTUPERVISOR.HAVE ATTEMPTED X4 TO CALL SON TO COME AND GET MOTHER TO GIVE THEM A BREAK FROM EACH OTHER OBTAINED VOICE MAIL EACH TIME.2029) SON CALLED WILL COME AND GET HIS MOTHER FOR THE NITE.ATTEMPT TO EXPLAIN TO PATIENT IMPORTANCE OF STAYING FOR TREATMENT.SAYS I KNOW THAT AND RIGHT NOW NOT STAYING HERE.AIDAN PIÑA NOTIFIED OF PATIENT BENEDICT GARCIA.AGAIN CALLED BARRIE WISEMAN APN AND NOTIFIED OF PATIENTS REFUSAL TO STAY REMAINS CONFUSED AND DISORIENTED TO PERSON PLACE TIME AND SITUATION.2044) WALKED WITH PATIENT AND MOTHER TO ER ENTRANCE IN TRUCK WITH BROTHERAMA FORM SIGNED PRIOR TO LEAVING
[2020-02-22 08:12] LABS: HEPATITIS C ANTIBODY 0.1 S/CO RAT (0.0-0.9)
== END 2020-02-21 21:28 | disposition left against medical advice (07) | DRG 439 ==
LOC: D.ER 15:05 → D.MS 18:31
PROVIDERS: Family Medicine; ADMIT Family Medicine; ATTEND Family Medicine
DX: K85.20 Alcohol induced acute pancreatitis without necrosis or infection (principal); F10.231 Alcohol dependence with withdrawal delirium; E87.1 Hypo-osmolality and hyponatremia; I10 Essential (primary) hypertension; E11.65 Type 2 diabetes mellitus with hyperglycemia; K58.9 Irritable bowel syndrome, unspecified; K74.60 Unspecified cirrhosis of liver; K86.0 Alcohol-induced chronic pancreatitis; D64.9 Anemia, unspecified; D69.6 Thrombocytopenia, unspecified

== ENCOUNTER 2020-03-15 06:44 | Outpatient (CLI) | payer BC ==
[~2020-03-15] VITALS: Ht 154.9 cm; Wt 62.7 kg
[~2020-03-15 06:44] MED LIST changes: +TORADOL10 MG PO
[2020-03-15 07:05] LABS: HEMATOCRIT 33.9 % (36.0-48.0); HEMOGLOBIN 10.7 g/dL (12-16); LYMPHOCYTES 8.8 % (15-50); MCHC 31.6 g/dL (31.0-37.0); MCV 101.5 fL (80.0-100.0); MEAN PLATELET VOLUME 10.9 fL (7.4-10.4); NEUTROPHILS 83.8 % (40-80); RBC 3.34 10x6/uL (4.00-5.40); RDW 14.7 % (11.5-14.5); WBC 11.5 10x3/uL (4.8-10.8)
[2020-03-15 07:16] LABS: PLATELET COUNT 147 10x3/uL (130-400)
[2020-03-15 07:30] LABS: INR 1.05 (0.85-1.17); PROTIME 13.6 SECONDS (11.6-15.0)
[2020-03-15 07:31] LABS: APTT 32.1 SECONDS (22.8-39.4)
[2020-03-15 07:33] LABS: ALBUMIN 3.6 g/dL (3.4-5.0); ANION GAP 11.7 mmol/L (8-16); BILIRUBIN - DIRECT 1.06 mg/dL (0.00-0.30); BILIRUBIN - TOTAL 1.69 mg/dL (0.2-1.3); CALCIUM 9.4 mg/dL (8.5-10.1); CARBON DIOXIDE 26.9 mmol/L (21.0-32.0); LDL-HDL RATIO 6.7 ratio (1.5-3.5); POTASSIUM - SERUM 4.6 mmol/L (3.5-5.1); PROTEIN - SERUM 7.9 g/dL (6.4-8.2)
[2020-03-15 07:36] LABS: % SATURATION 10 % (15-55); IRON 38 ug/dl (35-150); TOTAL IRON BIND CAPACITY 359 ug/dl (260-445); UNSAT IRON BIND CAPACITY 321 ug/dl (150-375)
[2020-03-15] MEDS ORDERED: ATARAX 25 MG TA25 MG PO (07:56)
[2020-03-15 08:06] VITALS: BP 110/61; Ht 154.9 cm; Wt 62.7 kg
[2020-03-15 08:10] LABS: HCG URINE NEGATIVE (NEGATIVE)
--- NOTE | 2020-03-15 10:47 | NUR ---
BENADRYL 25MG IVP FOR ITCHING
--- NOTE | 2020-03-15 14:04 | NUR ---
1400-ESCORTED VIA WHEELCHAIR TO PERSONAL CAR, LEFT WITH FAMILY MEMBER DRIVING.
== END 2020-03-15 14:00 ==
LOC: D.SP 06:44 → D.CT 09:00 → D.SP 14:00
PROVIDERS: Specialist; ATTEND Internal Medicine Gastroenterology
DX: R16.0 Hepatomegaly, not elsewhere classified (principal); L29.9 Pruritus, unspecified; R17 Unspecified jaundice

== ENCOUNTER → 2020-03-21 10:21 | Outpatient (CLI) | payer BC ==
[2020-03-15 08:06] VITALS: BMI 26.1
[~2020-03-21 10:21] MED LIST changes: +ATARAX 25 MG TA25 MG PO
[2020-03-21 12:31] LABS: ALBUMIN 3.7 g/dL (3.4-5.0)
[2020-03-22 07:16] LABS: HAPTOGLOBIN 125 mg/dL (42-296)
[2020-03-22 18:09] LABS: ALPHA FETOPROTEIN -(TUMOR MRK) 5.6 ng/mL (0.0-8.3)
[2020-03-24 05:10] LABS: IGG SUBCLASS 1 406 mg/dL (248-810); IGG SUBCLASS 2 417 mg/dL (130-555); IGG SUBCLASS 3 69 mg/dL (15-102); IGG SUBCLASS 4 16 mg/dL (2-96); IGGS - IGG SERUM 957 mg/dL (586-1602)
[2020-03-25 20:06] LABS: MITOCHONDRIAL ANTIBODY <20.0 Units (0.0-20.0)
[2020-03-26 15:11] LABS: SMOOTH MUSCLE ABS (ACTIN) 3 Units (0-19)
== END | disposition home or self-care (01) ==
LOC: D.LAB 10:21
PROVIDERS: ATTEND Internal Medicine Gastroenterology
DX: K86.1 Other chronic pancreatitis (principal); R82.2 Biliuria

== ENCOUNTER 2020-03-30 08:39 | Day surgery (SDC) | payer BC ==
[~2020-03-30] VITALS: Ht 154.9 cm; Wt 57.7 kg
[2020-03-30 08:53] LABS: HEMATOCRIT 36.7 % (36.0-48.0); HEMOGLOBIN 11.4 g/dL (12-16); MCH 31.2 pg (26.0-34.0); MCHC 31.1 g/dL (31.0-37.0); MCV 100.5 fL (80.0-100.0); RBC 3.65 10x6/uL (4.00-5.40); RDW 14.5 % (11.5-14.5); WBC 10.9 10x3/uL (4.8-10.8)
[2020-03-30] MEDS ORDERED: ZOLOFT25 MG PO (09:10)
[2020-03-30 09:15] LABS: HCG SERUM NEGATIVE (NEGATIVE)
[2020-03-30 09:19] VITALS: Ht 154.9 cm; Wt 57.7 kg
--- NOTE | 2020-03-30 11:29 | NUR ---
7272 DR AGARWAL IN ROOM TALKING TO PT ABOUT A ITCH SHE HAS BEEN HAVING FOR SEVERAL MONTHS. STATED SHE HAD SEEN A WATER CHEMIST AND THEY DID TAKE A BX. POST OP INSTRUCTIONS GIVEN TO PT. VS DONE
--- NOTE | 2020-04-01 10:20 | OP ---
PATIENT NAME: HERIBERTO HUITRON MEDICAL RECORD: [id number] :72 LOCATION:[facility] ADMISSION DATE: SURGEON: ROSA AGARWAL DO DATE OF OPERATION: 03/30/2020 PROCEDURE: EGD with biopsies. INDICATION FOR PROCEDURE: Elevated total bilirubin, recurrent pancreatitis, hepatomegaly, probable cirrhosis. SCOPE: Olympus video gastroscope. MEDICATIONS: Propofol 250 mg IV per anesthesia. ESTIMATED BLOOD LOSS: Minimal. COMPLICATIONS: None. FINDINGS: Informed consent was given. The patient was made comfortable with the above medication. After reaching an adequate level of sedation by slow IV push, the patient was placed on her left side. The endoscope was advanced under direct visualization through the mouth to the second portion of the duodenum with ease. The esophagus appeared normal without any varices visualized. At the GE junction, there were changes consistent with LA class B reflux-induced esophagitis. Cold forceps biopsies were taken at the GE junction. The endoscope was advanced beyond the GE junction into the stomach and retroflexed to view the cardia and fundus, which appeared normal. The body of the stomach appeared normal. In the antrum of the stomach and prepyloric region, there was erythema and granularity and some friability present. Cold forceps biopsies were taken from the antrum and incisura to submit for histopathology and to rule out the presence of H. pylori. Also, in the antrum and prepyloric region, there were some reactive-appearing nodules. Cold forceps biopsies were taken directly of these nodules to confirm their benign nature. The endoscope was advanced beyond the pylorus into the duodenum which appeared normal to the second portion. The endoscope was then withdrawn from the patient. The patient tolerated the procedure well and there were no complications. IMPRESSION: 1. LA class B reflux-induced esophagitis. 2. Mild antral gastritis. 3. Reactive antral nodules. PLAN AND RECOMMENDATIONS: 1. Discharge home when recovery parameters are met. 2. Follow up biopsy specimen results. 3. GERD diet and reflux precautions. 4. Continue current medications. 5. Omeprazole 40 mg daily times 60 days will be prescribed based on the gastritis and reactive nodules visualized on today's examination. After 60 days, the medication can be discontinued. 6. Follow up in GI clinic as scheduled. NTS:[id number] Voice Confirmation ID: [id number] DOCUMENT ID: [id number] OPERATIVE REPORT [id number] HERIBERTO HUITRON NATHAN A DO at 1020 CC: [id number] DICTATION DATE: 03/30/20 1100 CLEAN ROOM ASSEMBLER: 03/30/202054 [facility] 03/30/20 [place] [id number] [place] [id number]
== END 2020-03-30 12:33 | disposition home or self-care (01) ==
LOC: D.OPS 08:39
PROVIDERS: Anesthesiology; ATTEND Internal Medicine Gastroenterology
DX: R17 Unspecified jaundice (principal); K86.1 Other chronic pancreatitis; R16.0 Hepatomegaly, not elsewhere classified

== ENCOUNTER 2020-11-13 07:36 | Observation (INO) | payer BC ==
[~2020-11-13] VITALS: Ht 154.9 cm; Wt 59.1 kg
--- NOTE | ~2020-11-13 | OP ---
PATIENT NAME: HERIBERTO JENNINGS MEDICAL RECORD: [id number] :72 LOCATION:[facility] D.1209 ADMISSION DATE:11/19/20 SURGEON: KEVIN WAGNER MD DATE OF OPERATION: 11/19/2020 PREOPERATIVE DIAGNOSIS: Avascular necrosis, right hip. POSTOPERATIVE DIAGNOSIS: Avascular necrosis, right hip. PROCEDURE PERFORMED: Right total hip arthroplasty. INDICATIONS FOR THE PROCEDURE: Ms. Jennings is a 50-year-old female with history of right hip pain. MRI shows evidence of avascular necrosis. I talked to her about this condition and options for management. She has elected to proceed with surgery for right total hip arthroplasty. Risks, benefits and alternatives of surgery were discussed with the patient and consent was obtained. DESCRIPTION OF PROCEDURE: The patient was met in the holding area where her identity and confirmation of procedure was performed. The right lower extremity was marked. She was taken to the operating room where she was placed supine on the operating table and anesthesia was administered. She was then positioned on the Florence table and extremities were positioned and padded appropriately. Right lower extremity was prepped and draped in a sterile fashion. The patient received preoperative antibiotics as well as TXA and a timeout was performed before initiating the case. On initiation of the case, an anterior Hansen-Lynn approach was utilized for exposure. We incised through skin and subcutaneous tissues were dissected down to the tensor fascia. The fascia was then split longitudinally and the interval between tensor and sartorius/rectus was utilized for deep exposure. We continued our dissection down to identify the lateral circumflex vessels. These were tagged and cauterized. We dissected down to the anterior hip capsule, placed retractors around the superior and inferior femoral neck. A retractor was also placed over the anterior brim of the acetabulum. The anterior capsule was then excised. Femoral neck was marked and our femoral neck cut was completed. The femoral head was removed with a corkscrew device. The femoral head had a large area of avascular necrosis with the cartilage peeling from it. Retractors were then repositioned around the acetabulum tissue from around the acetabulum and the floor of the acetabulum was debrided. The head was sized to a size 44. We began reaming with the 41, reaming up sequentially to a size [address] a 50 mm cup. The cup was placed and malleted into position. Alignment was confirmed under fluoroscopy. The central hole cap and the cup was then placed and the acetabulum liner was tapped into position. We then turned our attention to the proximal femur. A hook was placed under the proximal femur and the leg was externally rotated. It was then taken into extension and adduction. Retractors were placed in the medial calcar and over the greater trochanter. Tissue was released from the shoulder of the hip as the proximal femur was elevated. Once we were pleased with our exposure, we then began preparing the proximal femur using a cookie cutter followed by the canal finder. We then broached starting with a size 4 going up to a size 6, at which point, we had good fit and stability in the proximal femur. We trialed this with a standard head and neck and noted to be slightly long. We therefore elected to go with a -3 neck. Images were obtained that showed good fit of the size 6 stem. The hip was again dislocated and repositioned. Our trial components were removed and the wound was irrigated thoroughly with saline. Our final size 6 stem and -3 ceramic head were placed and tapped into position. OPERATIVE REPORT [id number] HERIBERTO JENNINGS Stem was malleted down and then the head was tapped on. The hip was then reduced. Final images were obtained that showed good alignment and fixation of our proximal femur with near equal leg lengths. The wound was irrigated thoroughly with saline. Joint solution was injected around the capsule and the proximal femur. Tensor fascia was then closed with a running Vicryl suture. The subcutaneous tissues were irrigated thoroughly with saline. The subcutaneous tissues were closed with 2-0 Vicryl and the subcutaneous skin was closed with Monocryl. This was then covered with a Prineo Dermabond dressing. A sterile dressing was applied. The patient was turned back over to anesthesia where she was awakened, extubated, and taken to recovery room in stable condition. POSTOPERATIVE PLAN: The patient is going to be admitted for routine postoperative care. She will receive 24 hours of postoperative antibiotics and will be started on DVT prophylaxis tomorrow. Physical therapy will be consulted to assist with mobility, weightbearing as tolerated in right lower extremity. Plan home with home health upon discharge. ANESTHESIA: General. COMPLICATIONS: None. ESTIMATED BLOOD LOSS: 100 mL. TRANSINT:[id number] Voice Confirmation ID: [id number] DOCUMENT ID: [id number] KEVIN WAGNER MD CC: [id number] DICTATION DATE: 11/19/20 1313 WEBSITE PROGRAMMER: 11/19/20 2137 ADM IN [place] [id number] [place] [id number]
[~2020-11-13 07:36] MED LIST changes: +ZOFRAN4 MG PO; +ZOLOFT25 MG PO
[2020-11-15] MEDS ORDERED: REQUIP0.25 MG PO (13:46)
[2020-11-15 14:40] LABS: BASOPHILS 0.4 % (0-2); BILIRUBIN NEGATIVE (NEGATIVE); EOSINOPHILS 2.5 % (0-7); HEMATOCRIT 40.3 % (36.0-48.0); HEMOGLOBIN 12.5 g/dL (12-16); IMMATURE GRANULOCYTES 0.3 % (0-5); KETONE NEGATIVE (NEGATIVE); LYMPHOCYTE ABS# 0.97 10x3/uL (1.18-3.74); LYMPHOCYTES 12.3 % (15-50); MCV 96.9 fL (80.0-100.0); MEAN PLATELET VOLUME 9.7 fL (7.4-10.4); MONOCYTES 9.4 % (2-11); NEUTROPHIL ABS# 5.91 10x3/uL (1.56-6.13); NEUTROPHILS 75.1 % (40-80); NITRITE NEGATIVE (NEGATIVE); RBC 4.16 10x6/uL (4.00-5.40); RDW 15.6 % (11.5-14.5); UROBILINOGEN 4 mg/dL (< 2); WBC 7.9 10x3/uL (4.8-10.8)
[2020-11-15 14:41] LABS: PLATELET COUNT 157 10x3/uL (130-400)
[2020-11-15 14:54] LABS: BACTERIA MODERATE HPF (NONE SEEN)
[2020-11-15 14:56] LABS: ANION GAP 16.4 mmol/L (8-16); CALCIUM 9.3 mg/dL (8.5-10.1); CARBON DIOXIDE 25.8 mmol/L (21.0-32.0); CREATININE - SERUM 0.9 mg/dL (0.6-1.3); POTASSIUM - SERUM 5.2 mmol/L (3.5-5.1)
[2020-11-15 14:58] LABS: APTT 29.8 SECONDS (22.8-39.4); INR 1.09 (0.85-1.17)
[2020-11-19] VITALS (12 sets, daily range): BP systolic 130–200; BP diastolic 79–111; Ht 154.9 cm; Wt 59.1 kg
[2020-11-19] MEDS ORDERED: CIPRO500 MG PO (07:28)
[2020-11-19 07:42] LABS: HCG URINE NEGATIVE (NEGATIVE)
[2020-11-19 08:40] LABS: BILIRUBIN NEGATIVE (NEGATIVE); KETONE NEGATIVE (NEGATIVE); NITRITE NEGATIVE (NEGATIVE); WHITE CELLS - URINE 0-5 HPF (0-4)
[2020-11-19 08:41] LABS: BACTERIA FEW HPF (NONE SEEN); SQUAMOUS EPITHELIAL 0-5 HPF (0-4)
--- NOTE | 2020-11-19 13:30 | NUR ---
RECEIVED TO ROOM 1209 VIA BED FROM PACU. A/O X3. DRESSING TO RIGHT HIP IS DRY AND INTACT. REPORTS PAIN LEVEL 7 AT THIS TIME. WILL MONITOR.
--- NOTE | 2020-11-19 15:00 | NUR ---
BP CONTINUES TO BE ELEVATED. WILL CONTINUE TO MONITOR.
--- NOTE | 2020-11-19 15:20 | NUR ---
REQUESTED AND GIVEN 2 HYDROCODONE PO FOR C/O RIGHT HIP PAIN LEVEL 9. WILL MONITOR.
--- NOTE | 2020-11-19 16:00 | NUR ---
BP IS 200/105. GIVEN 10MG HYDRALIZINE SLOW IVP FOR SAME. WILL MONITOR.
--- NOTE | 2020-11-19 17:00 | NUR ---
BP IS DOWN TO 162/98. PATIENT IS ASYMPTOMATIC THROUGH ALL THIS. WILL CONTINUE TO MONITOR.
--- NOTE | 2020-11-19 18:50 | NUR ---
PATIENT RESTING IN BED WITH NO S/S OF DISTRESS. PATIENT DENIES NEEDS. SCD AND BRENDAN HOSE IN PLACE. IV INFUSING TO LEFT FA. NO DRAINAGE NOTED TO DRESSING TO RIGHT HIP. ENCOURAGED PATIENT TO CALL WITH NEEDS.
--- NOTE | 2020-11-19 19:13 | NUR ---
ATE MOST OF SUPPER. DENIES NEEDS. NO CHANGES NOTED.
[2020-11-20 04:00] VITALS: BP 143/74
[2020-11-20 05:14] LABS: BASOPHILS 0 % (0-2); EOSINOPHILS 0.8 % (0-7); HEMATOCRIT 28.3 % (36.0-48.0); HEMOGLOBIN 8.7 g/dL (12-16); IMMATURE GRANULOCYTES 0.4 % (0-5); LYMPHOCYTES 8.1 % (15-50); MCHC 30.7 g/dL (31.0-37.0); MCV 97.6 fL (80.0-100.0); MONOCYTES 11.9 % (2-11); NEUTROPHIL ABS# 3.89 10x3/uL (1.56-6.13); NEUTROPHILS 78.8 % (40-80); RDW 15.9 % (11.5-14.5); WBC 4.9 10x3/uL (4.8-10.8)
[2020-11-20 05:18] LABS: PLATELET COUNT 123 10x3/uL (130-400)
[2020-11-20 05:58] LABS: ALBUMIN 3.3 g/dL (3.4-5.0); ANION GAP 12.6 mmol/L (8-16); BILIRUBIN - TOTAL 2.15 mg/dL (0.2-1.3); CARBON DIOXIDE 24.5 mmol/L (21.0-32.0); CREATININE - SERUM 1.1 mg/dL (0.6-1.3); MAGNESIUM - SERUM 1.5 mg/dL (1.8-2.4); POTASSIUM - SERUM 4.1 mmol/L (3.5-5.1); PROTEIN - SERUM 6.3 g/dL (6.4-8.2)
--- NOTE | 2020-11-20 07:31 | NUR ---
PATIENT IS FEELING LIGHT HEADED AND SEEING SPOTS THIS AM. BPIS 67/48 MANUALLY. FSBS IS 148. WILL MONITOR. LUNGS ARE CLEAR BILATERALLY, NO COUGH NOTED. SKIN IS INTACT WITHOUT REDNESS EXCEPT INCISION TO RIGHT THIGH WHICH HAS A DRY INTACT DRESSING IN PLACE. SL TO RIGHT WRIST AND LEFT FOREARM ARE PATENT WITHOUT REDNESS AT INSERTION SITE. UP TO BR WITH ONE PERSON MIN ASSIST. VOIDED AND HAD SMALL BM. SKIN CARE PER SELF. REPOSITIONED IN BED FOR COMFORT.
[2020-11-20 07:49] VITALS: BP 103/35
[2020-11-20 10:40] VITALS: BP 95/47
[2020-11-20 12:07] VITALS: BP 110/80
[2020-11-20] MEDS ORDERED: ELIQUIS2.5 MG PO ×2 (13:43→13:44)
--- NOTE | 2020-11-20 14:46 | MORECARE ---
CASE MANAGEMENT DISCHARGE SUMMARY PATIENT: HERIBERTO HUITRON UNIT: [id number] ADM DATE: 11/19/20 AGE: 50 : 72 SEX: F ROOM/BED: D.1209 AUTHOR: KIM,DOC PHYSICIAN: REFERRING PHYSICIAN: KEVIN WAGNER MD DATE OF SERVICE: 11/20/20 Case Management Discharge Planning Summary COMMENTS ENTERED DATE: 11/20/20 14:33 CT COMMENT TYPE: Discharge Planning REVIEWER: Esteban Reynolds CM met with patient to complete DC plan and to evaluate needs. Patient lives with her but during recovery she will stay with her mother, Stanislav Mathews ([phone]). Her mother's address is [facility] [address] , [place] [id number]. At discharge, the patient plans to return home and feels this is a safe discharge. CM discussed availability of home health, rehab services, and medical equipment. Patient declined SNF and IPR. Patient stated that she would like to have [facility] for DME, Walker. ANALISA signed and placed on chart. Patient voiced no other needs at this time and is satisfied with DC plan. Transportation provider at discharge will be with her mother, Stanislav. CM will continue to follow and will assist as needed with dc plans/needs. DCP REVIEW SUMMARY ANTICIPATED D/C DATE: 11/20/2020 EXPECTED LOS : 1 CASE STATUS: DCP Initiated INITIAL REVIEW: 11/19/2020 INITIAL REVIEWER: Esteban Reynolds FINAL DISCHARGE DISPOSITION: : FINAL REVIEWER: FINAL REVIEW DATE: DCP Focus Questions & Answers DCP REV -DCP Review Added on: 11/20/20 2:38 pm QUESTION: ANSWER DCP Evaluation Patient gives permission to discuss discharge plans with: (name, relationship and number) : STANISLAV MATHEWS, MOTHER, Physical Status: : Independent with ADL's Baseline cognitive status: : *Oriented to person, place, situation, time and present Patient's ability to cope with chronic illness : d. No chronic illness Living Arrangements: : Home with Spouse/Significant Other Medication Management: : Patient states can afford medications Medication Management: : Patient states can read and understand medication labels [facility] Does Patient have transportation to get home and to follow-up medical appointments when discharged from the hospital? : Yes Does the patient have electricity at home? : Yes Does the patient have running water in their house? : Yes Equipment in use: : None Mental health screen: : No mental health history Patient's current cognitive status: : *Oriented to person, place, situation, time and present Functional screen assessment: : Basic needs can adequately be met by self Functional screen assessment: : No issues identified Patient with capacity for self-care or can be cared for in same environment as prior to hospitalization? : Yes Does the patient have the ability to pay for or attain post discharge needs / services? : Yes Is there a likelihood that the patient will require additional services to return to the preadmission environment? : Yes Results of this evaluation have been discussed with: : Patient Patient and/or caregiver agree upon recommended discharge plan? : Yes Equipment needed for post hospitalization: : Walker - Rolling Physical environment modification needed / anticipated for discharge: : No Would patient like to participate in any Care Coordination programs (if applicable): : Not applicable DCP Re-evaluation Would patient like to participate in any Care Coordination programs (if applicable): : Not applicable PATIENT: HERIBERTO HUITRON ENCOUNTER: [id number] MEDICAL RECORD#: [id number] ADMISSION DATE: 11/19/2020 DISCHARGE DATE: ATTENDING MD: YUKI: AGE: 50 MARITAL STATUS: M DC PLAN ID: [id number] FACILITY: [facility] PRINTED ON: 11/20/20 14:45 CT All edits/amendments must be made on the electronic document DICTATION DATE: 11/20/201444 HUMAN RESOURCES ASSISTANT MANAGER: ADORE 11/20/201444 RPT#: [id number] DC DATE: STATUS: ADM IN [facility] [address] [place] [address] END OF REPORT
[2020-11-20 14:57] VITALS: BP 120/70
--- NOTE | 2020-11-20 15:37 | MORECARE ---
CASE MANAGEMENT DISCHARGE SUMMARY PATIENT: HERIBERTO HUITRON UNIT: [id number] ADM DATE: 11/19/20 AGE: 50 : 72 SEX: F ROOM/BED: D.1209 AUTHOR: KIMDOC PHYSICIAN: REFERRING PHYSICIAN: KEVIN WAGNER MD DATE OF SERVICE: 11/20/20 Case Management Discharge Planning Summary COMMENTS ENTERED DATE: 11/20/20 14:33 CT COMMENT TYPE: Discharge Planning REVIEWER: Esteban Reynolds CM met with patient to complete DC plan and to evaluate needs. Patient lives with her but during recovery she will stay with her mother, Stanislav Mathews ([phone]). Her mother's address is [facility] [address] , [place] [id number]. At discharge, the patient plans to return home and feels this is a safe discharge. CM discussed availability of home health, rehab services, and medical equipment. Patient declined SNF and IPR. Patient stated that she would like to have [facility] for DME, Walker. ANALISA signed and placed on chart. Patient voiced no other needs at this time and is satisfied with DC plan. Transportation provider at discharge will be with her mother, Stanislav. CM will continue to follow and will assist as needed with dc plans/needs. Appended by Esteban Reynolds on 11/20/2020 15:30 CDT: Clinicals faxed to [facility] and [facility]. CM will continue to follow and will assist as needed with dc plans/needs. DCP REVIEW SUMMARY ANTICIPATED D/C DATE: 11/20/2020 EXPECTED LOS : 1 CASE STATUS: DCP Initiated INITIAL REVIEW: 11/19/2020 INITIAL REVIEWER: Esteban Reynolds FINAL DISCHARGE DISPOSITION: : FINAL REVIEWER: FINAL REVIEW DATE: DCP Focus Questions & Answers DCP REV -DCP Review Added on: 11/20/20 2:38 pm QUESTION: ANSWER DCP Evaluation Patient gives permission to discuss discharge plans with: (name, relationship and number) : STANISLAV MATHEWS, MOTHER, Physical Status: : Independent with ADL's Baseline cognitive status: : *Oriented to person, place, situation, time and present Patient's ability to cope with chronic illness : d. No chronic illness Living Arrangements: : Home with Spouse/Significant Other Medication Management: : Patient states can afford medications Medication Management: : Patient states can read and understand medication labels [facility] Does Patient have transportation to get home and to follow-up medical appointments when discharged from the hospital? : Yes Does the patient have electricity at home? : Yes Does the patient have running water in their house? : Yes Equipment in use: : None Mental health screen: : No mental health history Patient's current cognitive status: : *Oriented to person, place, situation, time and present Functional screen assessment: : Basic needs can adequately be met by self Functional screen assessment: : No issues identified Patient with capacity for self-care or can be cared for in same environment as prior to hospitalization? : Yes Does the patient have the ability to pay for or attain post discharge needs / services? : Yes Is there a likelihood that the patient will require additional services to return to the preadmission environment? : Yes Results of this evaluation have been discussed with: : Patient Patient and/or caregiver agree upon recommended discharge plan? : Yes Equipment needed for post hospitalization: : Walker - Rolling Physical environment modification needed / anticipated for discharge: : No Would patient like to participate in any Care Coordination programs (if applicable): : Not applicable DCP Re-evaluation Would patient like to participate in any Care Coordination programs (if applicable): : Not applicable PATIENT: HERIBERTO HUITRON ENCOUNTER: [id number] MEDICAL RECORD#: [id number] ADMISSION DATE: 11/19/2020 DISCHARGE DATE: ATTENDING MD: : AGE: 50 MARITAL STATUS: M DC PLAN ID: [id number] FACILITY: [facility] PRINTED ON: 11/20/20 15:37 CT All edits/amendments must be made on the electronic document DICTATION DATE: 11/20/201536 COD CLERK: ADORE 11/20/20 153 RPT#: [id number] DC DATE: STATUS: ADM IN [facility] [address] [place] [address] END OF REPORT
[2020-11-20] MEDS ORDERED: HYDROCODONE-AC1 EAC2 PO (16:21)
--- NOTE | 2020-11-20 17:11 | NUR ---
DISCHARGED TO HOME WITH FAMILY AMBULATORY. DISCHARGE INSTRUCTIONS GIVEN BOTH VERBALLY AND WRITTEN. ALL QUESTIONS ANSWERED. PATIENT VERBALIZED UNDERSTANDIGN OF SAME. SL TO LEFT FOREARM D/C WITH CATHETER INTACT. ALL BELONGINGS WITH PATIENT. NEEDED PRESCRIPTIONS GIVEN TO PATIENT.
--- NOTE | 2020-11-20 17:37 | MORECARE ---
CASE MANAGEMENT DISCHARGE SUMMARY PATIENT: HERIBERTO HUITRON UNIT: [id number] ADM DATE: 11/19/20 AGE: 50 : 72 SEX: F ROOM/BED: D.1209 AUTHOR: KIMDOC PHYSICIAN: REFERRING PHYSICIAN: KEVIN WAGNER MD DATE OF SERVICE: 11/20/20 Case Management Discharge Planning Summary COMMENTS ENTERED DATE: 11/20/20 14:33 CT COMMENT TYPE: Discharge Planning REVIEWER: Esteban Reynolds CM met with patient to complete DC plan and to evaluate needs. Patient lives with her but during recovery she will stay with her mother, Stanislav Mathews ([phone]). Her mother's address is [facility] [address] , [place] [phone]. At discharge, the patient plans to return home and feels this is a safe discharge. CM discussed availability of home health, rehab services, and medical equipment. Patient declined SNF and IPR. Patient stated that she would like to have [facility] for DME, Walker. ANALISA signed and placed on chart. Patient voiced no other needs at this time and is satisfied with DC plan. Transportation provider at discharge will be with her mother, Stanislav. CM will continue to follow and will assist as needed with dc plans/needs. Appended by Esteban Reynolds on 11/20/2020 15:30 CDT: Clinicals faxed to [facility] and [facility]. CM will continue to follow and will assist as needed with dc plans/needs. DCP REVIEW SUMMARY ANTICIPATED D/C DATE: 11/20/2020 EXPECTED LOS : 1 CASE STATUS: DCP Initiated INITIAL REVIEW: 11/19/2020 INITIAL REVIEWER: Esteban Reynolds FINAL DISCHARGE DISPOSITION: : FINAL REVIEWER: FINAL REVIEW DATE: DCP Focus Questions & Answers DCP REV -DCP Review Added on: 11/20/20 2:38 pm QUESTION: ANSWER DCP Evaluation Patient gives permission to discuss discharge plans with: (name, relationship and number) : STANISLAV MATHEWS, MOTHER, Physical Status: : Independent with ADL's Baseline cognitive status: : *Oriented to person, place, situation, time and present Patient's ability to cope with chronic illness : d. No chronic illness Living Arrangements: : Home with Spouse/Significant Other Medication Management: : Patient states can afford medications Medication Management: : Patient states can read and understand medication labels [facility] Does Patient have transportation to get home and to follow-up medical appointments when discharged from the hospital? : Yes Does the patient have electricity at home? : Yes Does the patient have running water in their house? : Yes Equipment in use: : None Mental health screen: : No mental health history Patient's current cognitive status: : *Oriented to person, place, situation, time and present Functional screen assessment: : Basic needs can adequately be met by self Functional screen assessment: : No issues identified Patient with capacity for self-care or can be cared for in same environment as prior to hospitalization? : Yes Does the patient have the ability to pay for or attain post discharge needs / services? : Yes Is there a likelihood that the patient will require additional services to return to the preadmission environment? : Yes Results of this evaluation have been discussed with: : Patient Patient and/or caregiver agree upon recommended discharge plan? : Yes Equipment needed for post hospitalization: : Walker - Rolling Physical environment modification needed / anticipated for discharge: : No Would patient like to participate in any Care Coordination programs (if applicable): : Not applicable DCP Re-evaluation Would patient like to participate in any Care Coordination programs (if applicable): : Not applicable PATIENT: HERIBERTO HUITRON ENCOUNTER: [id number] MEDICAL RECORD#: [id number] ADMISSION DATE: 11/19/2020 DISCHARGE DATE: 11/20/2020 ATTENDING MD: YUKI: AGE: 50 MARITAL STATUS: M DC PLAN ID: [id number] FACILITY: [facility] PRINTED ON: 11/20/20 17:37 CT All edits/amendments must be made on the electronic document DICTATION DATE: 11/20/201736 IT HELP DESK ANALYST: ADORE 11/20/201736 RPT#: [id number] DC DATE:11/20/20 STATUS: DIS IN [facility] [address] [place] [address] END OF REPORT
--- NOTE | 2020-11-20 17:49 | MORECARE ---
CASE MANAGEMENT DISCHARGE SUMMARY PATIENT: HERIBERTO HUITRON UNIT: [id number] ADM DATE: 11/19/20 AGE: 50 : 72 SEX: F ROOM/BED: D.1209 AUTHOR: KIM,DOC PHYSICIAN: REFERRING PHYSICIAN: KEVIN WAGNER MD DATE OF SERVICE: 11/20/20 Case Management Discharge Planning Summary COMMENTS ENTERED DATE: 11/20/20 14:33 CT COMMENT TYPE: Discharge Planning REVIEWER: Esteban Reynolds CM met with patient to complete DC plan and to evaluate needs. Patient lives with her but during recovery she will stay with her mother, Stanislav Mathews ([phone]). Her mother's address is [facility] [address] , [place] [address]. At discharge, the patient plans to return home and feels this is a safe discharge. CM discussed availability of home health, rehab services, and medical equipment. Patient declined SNF and IPR. Patient stated that she would like to have [facility] for DME, Walker. ANALISA signed and placed on chart. Patient voiced no other needs at this time and is satisfied with DC plan. Transportation provider at discharge will be with her mother, Stanislav. CM will continue to follow and will assist as needed with dc plans/needs. Appended by Esteban Reynolds on 11/20/2020 15:30 CDT: Clinicals faxed to [facility] and [facility]. CM will continue to follow and will assist as needed with dc plans/needs. Appended by Esteban Reynolds on 11/20/2020 17:40 CDT: Informed by [facility] that [employer] will only pay 50% of her visits. Informed patient. Patient consents to Home Health and SOC will be 21 NOV 2020. CM will continue to follow and will assist as needed with dc plans/needs. DCP REVIEW SUMMARY ANTICIPATED D/C DATE: 11/20/2020 EXPECTED LOS : 1 CASE STATUS: DCP Initiated INITIAL REVIEW: 11/19/2020 INITIAL REVIEWER: Esteban Reynolds FINAL DISCHARGE DISPOSITION: : FINAL REVIEWER: FINAL REVIEW DATE: DCP Focus Questions & Answers DCP REV -DCP Review Added on: 11/20/20 2:38 pm QUESTION: ANSWER DCP Evaluation Patient gives permission to discuss discharge plans with: (name, relationship and number) : STANISLAV MATHEWS, MOTHER, Physical Status: : Independent with ADL's Baseline cognitive status: : *Oriented to person, place, situation, time and present Patient's ability to cope with chronic illness : d. No chronic illness Living Arrangements: : Home with Spouse/Significant Other Medication Management: : Patient states can afford medications Medication Management: : Patient states can read and understand medication labels [facility] name([facility]): : [facility] Does Patient have transportation to get home and to follow-up medical appointments when discharged from the hospital? : Yes Does the patient have electricity at home? : Yes Does the patient have running water in their house? : Yes Equipment in use: : None Mental health screen: : No mental health history Patient's current cognitive status: : *Oriented to person, place, situation, time and present Functional screen assessment: : Basic needs can adequately be met by self Functional screen assessment: : No issues identified Patient with capacity for self-care or can be cared for in same environment as prior to hospitalization? : Yes Does the patient have the ability to pay for or attain post discharge needs / services? : Yes Is there a likelihood that the patient will require additional services to return to the preadmission environment? : Yes Results of this evaluation have been discussed with: : Patient Patient and/or caregiver agree upon recommended discharge plan? : Yes Equipment needed for post hospitalization: : Walker - [facility] Physical environment modification needed / anticipated for discharge: : No Would patient like to participate in any Care Coordination programs (if applicable): : Not applicable DCP Re-evaluation Would patient like to participate in any Care Coordination programs (if applicable): : Not applicable PATIENT: HERIBERTO HUITRON ENCOUNTER: [id number] MEDICAL RECORD#: [id number] ADMISSION DATE: 11/19/2020 DISCHARGE DATE: 11/20/2020 ATTENDING MD: YUKI: AGE: 50 MARITAL STATUS: M DC PLAN ID: [id number] FACILITY: [facility] PRINTED ON: 11/20/20 17:48 CT All edits/amendments must be made on the electronic document DICTATION DATE: 11/20/201747 CANDLE MAKER: ADORE 11/20/201747 RPT#: [id number] DC DATE:11/20/20 STATUS: DIS IN [facility] [address] [place] [address] END OF REPORT
--- NOTE | 2020-11-21 07:25 | MORECARE ---
CASE MANAGEMENT DISCHARGE SUMMARY PATIENT: HERIBERTO HUITRON UNIT: [id number] ADM DATE: 11/19/20 AGE: 50 : 72 SEX: F ROOM/BED: D.1209 AUTHOR: KIM,DOC PHYSICIAN: REFERRING PHYSICIAN: KEVIN WAGNER MD DATE OF SERVICE: 11/21/20 Case Management Discharge Planning Summary COMMENTS ENTERED DATE: 11/20/20 14:33 CT COMMENT TYPE: Discharge Planning REVIEWER: Esteban Reynolds CM met with patient to complete DC plan and to evaluate needs. Patient lives with her but during recovery she will stay with her mother, Stanislav Mathews ([phone]). Her mother's address is [facility] [address] , [place] [address]. At discharge, the patient plans to return home and feels this is a safe discharge. CM discussed availability of home health, rehab services, and medical equipment. Patient declined SNF and IPR. Patient stated that she would like to have [facility] for DME, Walker. ANALISA signed and placed on chart. Patient voiced no other needs at this time and is satisfied with DC plan. Transportation provider at discharge will be with her mother, Stanislav. CM will continue to follow and will assist as needed with dc plans/needs. Appended by Esteban Reynolds on 11/20/2020 15:30 CDT: Clinicals faxed to [facility] and [facility]. CM will continue to follow and will assist as needed with dc plans/needs. Appended by Esteban Reynolds on 11/20/2020 17:40 CDT: Informed by [facility] that [employer] will only pay 50% of her visits. Informed patient. Patient consents to Home Health and SOC will be 21 NOV 2020. CM will continue to follow and will assist as needed with dc plans/needs. DCP REVIEW SUMMARY ANTICIPATED D/C DATE: 11/20/2020 EXPECTED LOS : 1 CASE STATUS: DCP Initiated INITIAL REVIEW: 11/19/2020 INITIAL REVIEWER: Esteban Reynolds FINAL DISCHARGE DISPOSITION: : FINAL REVIEWER: FINAL REVIEW DATE: DCP Focus Questions & Answers DCP REV -DCP Review Added on: 11/20/20 2:38 pm QUESTION: ANSWER DCP Evaluation Patient gives permission to discuss discharge plans with: (name, relationship and number) : STANISLAV MATHEWS, MOTHER, Physical Status: : Independent with ADL's Baseline cognitive status: : *Oriented to person, place, situation, time and present Patient's ability to cope with chronic illness : d. No chronic illness Living Arrangements: : Home with Spouse/Significant Other Medication Management: : Patient states can afford medications Medication Management: : Patient states can read and understand medication labels [facility](s): : [facility] Does Patient have transportation to get home and to follow-up medical appointments when discharged from the hospital? : Yes Does the patient have electricity at home? : Yes Does the patient have running water in their house? : Yes Equipment in use: : None Mental health screen: : No mental health history Patient's current cognitive status: : *Oriented to person, place, situation, time and present Functional screen assessment: : Basic needs can adequately be met by self Functional screen assessment: : No issues identified Patient with capacity for self-care or can be cared for in same environment as prior to hospitalization? : Yes Does the patient have the ability to pay for or attain post discharge needs / services? : Yes Is there a likelihood that the patient will require additional services to return to the preadmission environment? : Yes Results of this evaluation have been discussed with: : Patient Patient and/or caregiver agree upon recommended discharge plan? : Yes Equipment needed for post hospitalization: : Walker - [place] Physical environment modification needed / anticipated for discharge: : No Would patient like to participate in any Care Coordination programs (if applicable): : Not applicable DCP Re-evaluation Would patient like to participate in any Care Coordination programs (if applicable): : Not applicable PATIENT: HERIBERTO HUITRON ENCOUNTER: [id number] MEDICAL RECORD#: [id number] ADMISSION DATE: 11/19/2020 DISCHARGE DATE: 11/20/2020 ATTENDING MD: YUKI: AGE: 50 MARITAL STATUS: M DC PLAN ID: [id number] FACILITY: [facility] PRINTED ON: 11/21/20 7:25 CT All edits/amendments must be made on the electronic document DICTATION DATE: 11/21/20724 CONTROL BOARD OPERATOR: ADORE 11/21/20724 RPT#: [id number] DC DATE:11/20/20 STATUS: DIS IN [facility] [address] [place] [place] [address] END OF REPORT
== END 2020-11-20 17:26 | disposition home or self-care (01) ==
LOC: D.SDCHOLD 11-19 07:17 → D.M3 11-19 07:17 → OBSVTIME 11-19 07:17 → D.M3 11-19 07:17 → D.SDCHOLD 11-19 07:30 → D.M3 11-19 12:42
PROVIDERS: Family Medicine; ADMIT Orthopaedic Surgery; ATTEND Orthopaedic Surgery
DX: M87.88 Other osteonecrosis, other site (principal); K76.0 Fatty (change of) liver, not elsewhere classified; I10 Essential (primary) hypertension; E11.65 Type 2 diabetes mellitus with hyperglycemia; K58.9 Irritable bowel syndrome, unspecified; K74.60 Unspecified cirrhosis of liver; E80.6 Other disorders of bilirubin metabolism; D62 Acute posthemorrhagic anemia; R74.01 Elevation of levels of liver transaminase levels; D69.6 Thrombocytopenia, unspecified